=== PATIENT | female | born 1965 | race Two or more races ===

== ENCOUNTER 2021-07-03 18:49 | Emergency (ER) | payer OTHER ==
[~2021-07-03] VITALS: Ht 154.9 cm; Wt 79.2 kg
[2021-07-03] MEDS ORDERED: KETOROLAC TROMETH 30 MG/ML 1ML VIAL IM ONE (21:30)
[2021-07-04 02:15] VITALS: BP 128/65
== END 2021-07-04 02:32 | disposition home or self-care (01) ==
LOC: ER 18:58
DX: S69.91XA Unspecified injury of right wrist, hand and finger(s), initial encounter (principal); E03.9 Hypothyroidism, unspecified; E78.5 Hyperlipidemia, unspecified; X50.1XXA Overexertion from prolonged static or awkward postures, initial encounter; Y93.89 Activity, other specified; Y92.89 Other specified places as the place of occurrence of the external cause; Y99.8 Other external cause status
CPT/HCPCS: 73130; 96372; 99283; J1885

== ENCOUNTER 2022-07-04 12:58 | Emergency (ER) | payer OTHER ==
[~2022-07-04] VITALS: Ht 160 cm; Wt 77.3 kg
[2022-07-04 13:11] VITALS: BP 117/71
[2022-07-04] MEDS ORDERED: NAPR-746 PO (16:27)
== END 2022-07-04 16:36 | disposition home or self-care (01) ==
LOC: ER 12:58
DX: S40.022A Contusion of left upper arm, initial encounter (principal); X58.XXXA Exposure to other specified factors, initial encounter; Y93.89 Activity, other specified; Y92.89 Other specified places as the place of occurrence of the external cause; Y99.8 Other external cause status
CPT/HCPCS: 93971

== ENCOUNTER 2024-01-15 18:51 | Inpatient (IN) | payer OTHER, SELFPAY ==
[~2024-01-15] VITALS: Ht 165.1 cm; Wt 79.8 kg
[~2024-01-15 18:51] MED LIST: NAPR-746 PO
[2024-01-15 19:03] VITALS: PULSE 71; RESP 13; O2SAT 96
--- NOTE | 2024-01-15 19:09 | ED.PDOC ---
History of Present Illness HPI Comments 58 y/o F, with a Hx of 4x CVA, facial paralysis, HLD, DM and thyroid disease, presents with relative for c/o right-facial contortion, today. Per relative, patient had sudden onset of symptoms following an anxiety attack, while being seen at [facility], earlier, today, after seeking her PCP for "right barnes bruising." Patient denies any vision or speech changes, facial droop, or other associated symptoms or modifiers at this time. 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 Family History Family History: Reviewed,noncontributory to illness Social History Smoker: Non-Smoker Alcohol: Denies ETOH Use Drugs: Denies Drug Use Lives In: Home Constitutional: denies: chills, diaphoresis, fatigue, fever, malaise, sweats, weakness, others EENTM: reports: others (facial contortions, right side ); denies: blurred vision, double vision, ear bleeding, ear discharge, ear drainage, ear pain, ear ringing, eye pain, eye redness, hearing loss, mouth pain, mouth swelling, nasal discharge, nose bleeding, nose congestion, nose pain, photophobia, tearing, throat pain, throat swelling, voice changes Respiratory: denies: cough, hemoptysis, orthopnea, SOB at rest, shortness of breath, SOB with excertion, stridor, wheezing, others Cardiovascular: denies: chest pain, dizzy spells, diaphoresis, Dyspnea on exertion, edema, irregular heart beat, left arm pain, lightheadedness, palpitations, PND, syncope, others Gastrointestinal: denies: abdomen distended, abdominal pain, blood streaked bowels, constipated, diarrhea, dysphagia, difficulty swallowing, hematemesis, melena, nausea, poor appetite, poor fluid intake, rectal bleeding, rectal pain, vomiting, others Genitourinary: denies: abnormal vagina bleeding, burning, dyspareunia, dysuria, flank pain, frequency, hematuria, incontinence, pain, , vagina discharge, urgency, others Neurological: denies: dizziness, fainting, headache, left sided numbness, left sided weakness, numbness, paresthesia, pre-existing deficit, right sided numbnes s, right sided weakness, seizure, speech problems, tingling, tremors, weakness, others Musculoskeletal: denies: back pain, gout, joint pain, joint swelling, muscle pain, muscle stiffness, neck pain, others Integumetry: denies: bruises, change in color, change in hair/nails, dryness, laceration, lesions, lumps, rash, wounds, others Allergic/Immunocompromised: denies: Difficulty Healing, Frequent Infections, Hives, Itching, others Hematologic/Lymphatic: denies: anemia, blood clots, easy bleeding, easy bruising, swollen glands, others Endocrine: denies: excessive hunger, excessive sweating, excessive thirst, excessive urination, flushing, intolerance to cold, intolerance to heat, unexplained weight gain, unexplained weight loss, others Psychiatric: denies: anxiety, bipolar disorder, depression, hopeless, panic disorder, schizophrenia, sleepless, suicidal, others All Other Systems: Reviewed and Negative Physical Exam General Appearance: No Apparent Distress, Other (overweight ) HEENT: Normal ENT Inspection, Pharynx Normal, TMs Normal, Other (right facial contortions, no facial droop noted ) Neck: Full Range of Motion, Non-Tender, Normal, Normal Inspection Respiratory: Chest Non-Tender, Lungs Clear, No Accessory Muscle Use, No Respiratory Distress, Normal Breath Sounds Cardiovascular: No Edema, No JVD, No Murmur, No Gallop, Normal Peripheral Pulses, Regular Rate/Rhythm Breast Exam: Deferred Gastrointestinal: No Organomegaly, Non Tender, No Pulsatile Mass, Normal Bowel Sounds, Soft Genitalia: Deferred Pelvic: Deferred Rectal: Deferred Extremities: No calf tenderness, Normal capillary refill, Normal inspection, Normal range of motion, Non-tender, No pedal edema Musculoskeletal : Apperance: Normal Neurologic: Alert, housecleaner II-XII nml as Tested, No Motor Deficits, Normal Affect, Normal Mood, No Sensory Deficits Cerebellar Function: Normal Reflexes: Normal Skin: Dry, Normal Color, Warm Lymphatic: No Adenopathy Was a procedure done? Was a procedure done?: No Differential Dx Considerations may include: CVA, TIA, facial paralysis, electrolyte imbalance X-Ray, Labs, Meds, VS Vital Signs Date Time Temp Pulse Resp B/P (MAP) Pulse Ox O2 Delivery O2 Flow Rate FiO2 01/15/24 22:00 70 14 134/73 (93) 99 01/15/24 21:00 65 16 139/82 (101) 99 01/15/24 20:00 71 13 129/88 (102) 96 01/15/24 20:00 64 01/15/24 19:35 16 95 Room Air* 0 21 01/15/24 19:33 71 13 129/88 (102) 96 01/15/24 19:06 98.0 70 18 137/71 (93) 97 01/15/24 19:03 71 13 96 Room Air* 0 21 01/15/24 19:00 81 Lab Test 01/15/24 20:40 01/15/24 20:11 01/15/24 19:40 Range/Units Sodium Level 139 136-145 mmol/L Potassium Level 3.5 3.5-5.1 mmol/L Chloride Level 105 98-107 mmol/L Carbon Dioxide Level 26 20-31 mmol/L Anion Gap 8 5-15 Blood Urea Nitrogen 15 9-23 mg/dL Creatinine 0.67 0.550-1.02 mg/dL Glomerular Filtration Rate Calc 102 >90 mL/min BUN/Creatinine Ratio 22.4 H 10.0-20.0 Serum Glucose 109 H 74-106 mg/dL Calcium Level 10.4 8.7-10.4 mg/dL Troponin I High Sensitivity < 3 L < 3 L </=34 ng/L Urine Color Colorless Yellow Urine Clarity Clear Clear Urine pH 6.5 5.0-9.0 Urine Specific [place] 1.019 1.001-1.035 Urine Protein Negative Negative Urine Ketones Negative Negative Urine Blood Negative Negative /uL Urine Nitrite Negative Negative Urine Bilirubin Negative Negative Urine Urobilinogen Normal Negative mg/dL Urine Leukocyte Esterase Negative Negative /uL Urine RBC 1 0 - 4 /hpf Urine WBC <1 0 - 5 /hpf Urine Squamous Epithelial Cells Few <5 /hpf Urine Bacteria None seen None Seen /hpf Urine Glucose Normal Normal mg/dL White Blood Count 7.1 4.4-10.8 10^3/uL Red Blood Count 4.27 4.0-5.20 10^6/uL Hemoglobin 14.0 12.2-16.2 g/dL Hematocrit 39.9 36.0-46.0 % Mean Corpuscular Volume 93.5 80.0-100.0 fL Mean Corpuscular Hemoglobin 32.8 H 28.0-32.0 pg Mean Corpuscular Hemoglobin Concent 35.1 32.0-36.0 g/dL Red Cell Distribution Width 13.6 11.8-14.3 % Platelet Count 325 140-450 10^3/uL Mean Platelet Volume 9.2 6.9-10.8 fL Neutrophils (%) (Auto) 44.0 37.0-80.0 % Lymphocytes (%) (Auto) 42.4 10.0-50.0 % Monocytes (%) (Auto) 7.3 0.0-12.0 % Eosinophils (%) (Auto) 5.5 0.0-7.0 % Basophils (%) (Auto) 0.8 0.0-2.0 % Neutrophils # (Auto) 3.1 1.6-8.6 10 ^3/uL Lymphocytes # (Auto) 3.0 0.4-5.4 10 ^3/uL Monocytes # (Auto) 0.5 0-1.3 10 ^3/uL Eosinophils # (Auto) 0.4 0-0.8 10 ^3/uL Basophils # (Auto) 0.1 0-0.2 10 ^3/uL Nucleated Red Blood Cells 0.2 % Time of 1ST Reevaluation: 19:30 Reevaluation 1ST: Unchanged Patient Education/Counseling: Diagnosis, Treatment Family Education/Counseling: Diagnosis, Treatment Critical Care Note Critical Care Time?: No Stability Stability form required: No Heart Score Heart Score: Heart Score Response (Comments) Value History N/A 0 EKG N/A 0 Age N/A 0 Risk Factors N/A 0 Troponin N/A 0 Total 0 I personally scribed for MUNA TAMAYO MD ([email or web address]) on 01/15/24 at 19:09. Electronically submitted by Abisai Hamilton ([email or web address]). I personally scribed for MUNA TAMAYO MD ([email or web address]) on 01/15/24 at 22:42. Electronically submitted by Abisai Hamilton ([email or web address]). MUNA TAMAYO MD Jan 15, 2024 19:09
[2024-01-15 19:35] VITALS: RESP 16; O2SAT 95
[2024-01-15] MEDS: IOHEXOL 350 MG/ML 100ML IJ ONE (19:55)
[2024-01-15 20:13] LABS: Urine Bacteria None Seen /hpf (None Seen)
--- NOTE | 2024-01-15 20:18 | DVH ---
INDICATION: r/o cva COMPARISON: None TECHNIQUE: CTA head without and with intravenous contrast. CTA neck with intravenous contrast. 3D image postprocessing was performed on a dedicated workstation and images were used for interpretation and reporting. Radiation Dose Information: CT Dose: CTDI volume is 33.61 mGy. Dose-length product is 1456.28 mGy*cm FINDINGS: CT head: There is no evidence of acute intracranial hemorrhage, extra-axial collection, mass effect, midline s hift, herniation or hydrocephalus. The ventricles, sulci and cisterns are age appropriate. The lozano -white differentiation is intact. The visualized paranasal sinuses and mastoid air cells are clear. The surrounding soft tissues and osseous structures are unremarkable. CTA head: There is normal enhancement of the visualized distal internal carotid, anterior and middle cerebral a rteries. There is a normal anterior communicating artery complex. There are bilateral posterior com municating arteries. The vertebral, basilar, cerebellar and posterior cerebral arteries are within n ormal limits. The early parenchymal enhancement is grossly unremarkable. The visualized intracrania l venous structures are grossly unremarkable. CTA neck: The visualized thoracic aortic arch and proximal great vessels are unremarkable. The left common, internal and external carotid arteries are within normal limits. The right common, internal and external carotid arteries are within normal limits. The cervical segments of the right and left vertebral arteries are within normal limits. The limited visualized lung apices are clear. The surrounding soft tissues and osseous structures ar e otherwise unremarkable. IMPRESSION: 1. No evidence of acute intracranial hemorrhage, mass effect or hydrocephalus. 2. No evidence of hemodynamically significant intracranial stenosis, proximal occlusion or aneurysm. 3. No evidence of hemodynamically significant cervical stenosis or dissection. All CT scans at this medical facility are performed using dose modulation techniques as appropriate t o a performed exam including the following: Automated exposure control was utilized; adjustment of th e MA and/or KV according to patient size; and use of iterative reconstruction technique.
[2024-01-15 20:23] LABS: Basophils # (auto) 0.1 10 ^3/uL (0-0.2); Basophils % (auto) 0.8 % (0.0-2.0); Eosinophils # (auto) 0.4 10 ^3/uL (0-0.8); Eosinophils % (auto) 5.5 % (0.0-7.0); Hematocrit 39.9 % (36.0-46.0); Lymphocytes % (auto) 42.4 % (10.0-50.0); Mean Corpuscular Hemoglobin 32.8 pg (28.0-32.0); Mean Corpuscular Hgb Conc. 35.1 g/dL (32.0-36.0); Mean Corpuscular Volume 93.5 fL (80.0-100.0); Monocytes # (auto) 0.5 10 ^3/uL (0-1.3); Monocytes % (auto) 7.3 % (0.0-12.0); Neutrophils # (auto) 3.1 10 ^3/uL (1.6-8.6); Nucleated Red Blood Cells % 0.2 %; Platelet Count (auto) 325 10^3/uL (140-450); Red Blood Cells 4.27 10^6/uL (4.0-5.20); Red Cell Distribution Width 13.6 % (11.8-14.3); White Blood Cell 7.1 10^3/uL (4.4-10.8)
[2024-01-15 20:24] LABS: Urine Blood Negative /uL (Negative); Urine Clarity Clear (Clear); Urine Color Colorless (Yellow); Urine Protein, UAD Negative (Negative); Urine Specific Gravity 1.019 (1.001-1.035); Urine Urobilinogen Normal (Negative); Urine WBC <1 /hpf (0 - 5); Urine pH 6.5 (5.0-9.0)
--- NOTE | 2024-01-15 20:58 | DVH ---
EXAM: XY CHEST PORTABLE TECHNIQUE: Single frontal chest radiograph CLINICAL HISTORY: stroke symptoms COMPARISON: None Findings/Impression: Frontal chest radiograph demonstrates no acute osseous or superficial soft tissue abnormalities. The trachea is midline. The cardiac silhouette and mediastinum are within normal limits. No pneumothorax, pleural effusions, or consolidations.
[2024-01-15 21:13] LABS: Chloride 105 mmol/L (98-107); Potassium 3.5 mmol/L (3.5-5.1); Sodium 139 mmol/L (136-145)
[2024-01-15 21:14] LABS: Anion Gap 8 (5-15); Carbon Dioxide 26 mmol/L (20-31)
[2024-01-15 21:20] LABS: BUN/Creatinine Ratio 22.4 (10.0-20.0); Blood Urea Nitrogen 15 mg/dL (9-23)
[2024-01-15 21:31] LABS: Calcium 10.4 mg/dL (8.7-10.4); Glucose 109 mg/dL (74-106)
--- NOTE | 2024-01-15 22:21 | BSKYNEURO ---
Interior Neuro Note # Demographics Consult Type: Acute Stroke Level 1 (0-4.5 hrs) Patient Location: Emergency Room First Name: LONDON Last Name: EFRA Date of : 1965 Age: 58 Gender: Female Facility: [facility] Time of Initial Page (): 01/15/2024, 19:05 Time of Return Call (): 01/15/2024, 19:05 # HPI History: [id number]- [id number] Patient is coming to the ER for bruise on her barnes. She went to another ER and got anxious and was having generalized numbness and right sided facial asymmetry. H/O previous stroke- with similar symptoms. ASA 81 mg daily # Scores Time of exam and NIHSS (): 01/15/2024, 19:41 Level of Consciousness 1a: [1] = Not alert; but arousable by minor stim LOC Questions 1b: [2] = Answers neither correctly LOC Commands 1c: [2] = Performs neither correctly Best Gaze 2: [0] = Normal Visual 3: [0] = No visual loss Facial Palsy 4: [2] = Partial paralysis Motor Arm Left 5a: [4] = No movement Motor Arm Right 5b: [4] = No movement Motor Leg Left 6a: [4] = No movement Motor Leg Right 6b: [4] = No movement Limb Ataxia 7: [0] = Absent Sensory 8: [1] = [id number] sensory loss Best Language 9: [3] = Mute Dysarthria 10: [2] = Severe dysarthria Extinction and Inattention 11: [0] = No abnormality NIHSS Total: 29 # Assessment Impression: - Ischemic Stroke (Acute) - Stroke Mimic NIHSS is 4; likely recrudescence of previous stroke symptoms. Need evaluation for metabolic/infectious etiologies. If no other obvious cause for his symptoms, may need brain MRI wo contrast # Plan Thrombolytic/Intervention: NOT IV Thrombolysis or IA Intervention candidate Thrombolytic Exclusion (< 3 hour window): - other (see below) Thrombolytic Exclusion: recrudescence of previous stroke Intraarterial Exclusion: - no large vessel occlusion (LVO) Target Blood Pressure: - SBP < 180 - SBP > 140 Labs: - hemoglobin A1c - lipid panel - comprehensive metabolic panel - CBC - ua - urine drug screen - ESR - Ammonia - TSH - troponin Imaging: (urgency: routine): - MRI Brain without contrast Diagnostic Test: - echo without bubble study Therapy/Evaluation: - NPO until swallow evaluation - PT/OT evaluation Medication: - aspirin 81 mg PLUS clopidogrel (Plavix) 75 mg for 21 days, then monotherapy therafter - start statin with goal of LDL < 70 Other: - If patient has any neurological deterioration please call me back immediately - permissive hypertension - LDL < 70 - telemetry monitoring - will need event monitor or loop recorder as outpatient if atrial fibrillation not found as inpatient - neurology referral as outpatient - I have discussed my recommendations with the referring provider - would not pursue stroke work-up if MRI is negative Disposition: admit # Logistics Attestation of consult completion: The patient is located at: [facility]. Facility staff participated in the visit. I performed this telemedicine visit from my offsite office utilizing interactive 2 way audio and visual telecommunication technology. Total time spent in telemedicine encounter: I spent 15 minutes reviewing clinical data and/or imaging, obtaining history, examining the patient, communicating with the onsite care team, and in preparation of this report. # Demographics First Name: LONDON Last Name: EFRA Facility: [facility] Yes ALAINA KNOWLES MD Jan 15, 2024 22:21
--- NOTE | 2024-01-15 22:46 | ED.PDOC ---
History of Present Illness HPI Comments 58 y/o F, with a Hx of 4x CVA, facial paralysis, HLD, DM and thyroid disease, presents with relative for c/o right-facial contortion, today. Per relative, patient had sudden onset of symptoms following an anxiety attack, while being seen at [facility], earlier, today, after seeking her PCP for "right barnes bruising." Patient denies any vision or speech changes, facial droop, or other associated Chief Complaint: Stroke Time Seen by MD: 19:00 Primary Care Provider: JELLY Reviewed Notes: Nurses Notes, Medications, Allergies Allergies: Coded Allergies: NO KNOWN ALLERGIES (Unverified , 07/03/21) Home Meds Active Scripts Naproxen (Naproxen) 500 Mg Tab, 500 MG PO BID, #30 TAB Prov:ART DOE 07/04/22 Information Source: Patient, Relative Mode of Arrival: Ambulatory Severity: Moderate Timing: Hours Duration: Since onset Prehospital treatment: None Past Medical History PAST MEDICAL HISTORY: CVA (4x), DM, High Lipids, Thyroid Past Medical History (Other): facial paralysis Surgical History: Denies all surgeries HEARING SCREENER History: Denies all HEARING SCREENER Hx Family History Family History: Reviewed,noncontributory to illness Social History Smoker: Non-Smoker Alcohol: Denies ETOH Use Drugs: Denies Drug Use Lives In: Home Constitutional: denies: chills, diaphoresis, fatigue, fever, malaise, sweats, weakness, others EENTM: reports: others (ight facial contortions); denies: blurred vision, double vision, ear bleeding, ear discharge, ear drainage, ear pain, ear ringing, eye pain, eye redness, hearing loss, mouth pain, mouth swelling, nasal discharge, nose bleeding, nose congestion, nose pain, photophobia, tearing, throat pain, throat swelling, voice changes Respiratory: denies: cough, hemoptysis, orthopnea, SOB at rest, shortness of br eath, SOB with excertion, stridor, wheezing, others Cardiovascular: denies: chest pain, dizzy spells, diaphoresis, Dyspnea on exertion, edema, irregular heart beat, left arm pain, lightheadedness, palpitations, PND, syncope, others Gastrointestinal: denies: abdomen distended, abdominal pain, blood streaked bowels, constipated, diarrhea, dysphagia, difficulty swallowing, hematemesis, melena, nausea, poor appetite, poor fluid intake, rectal bleeding, rectal pain, vomiting, others Genitourinary: denies: abnormal vagina bleeding, burning, dyspareunia, dysuria, flank pain, frequency, hematuria, incontinence, pain, , vagina discharge, urgency, others Neurological: denies: dizziness, fainting, headache, left sided numbness, left sided weakness, numbness, paresthesia, pre-existing deficit, right sided numbness, right sided weakness, seizure, speech problems, tingling, tremors, weakness, others Musculoskeletal: denies: back pain, gout, joint pain, joint swelling, muscle pain, muscle stiffness, neck pain, others Integumetry: denies: bruises, change in color, change in hair/nails, dryness, laceration, lesions, lumps, rash, wounds, others Allergic/Immunocompromised: denies: Difficulty Healing, Frequent Infections, Hives, Itching, others Hematologic/Lymphatic: denies: anemia, blood clots, easy bleeding, easy bruising, swollen glands, others Endocrine: denies: excessive hunger, excessive sweating, excessive thirst, excessive urination, flushing, intolerance to cold, intolerance to heat, unexplained weight gain, unexplained weight loss, others Psychiatric: denies: anxiety, bipolar disorder, depression, hopeless, panic disorder, schizophrenia, sleepless, suicidal, others All Other Systems: Reviewed and Negative Physical Exam General Appearance: No Apparent Distress, Normal HEENT: Pharynx Normal, TMs Normal, Other (right facial contortions, no facial droop noted) Neck: Full Range of Motion, Non-Tender, Normal, Normal Inspection Respiratory: Chest Non-Tender, Lungs Clear, No Accessory Muscle Use, No Respiratory Distress, Normal Breath Sounds Cardiovascular: No Edema, No JVD, No Murmur, No Gallop, Normal Peripheral Pulses, Regular Rate/Rhythm Breast Exam: Deferred Gastrointestinal: No Organomegaly, Non Tender, No Pulsatile Mass, Normal Bowel Sounds, Soft Genitalia: Deferred Pelvic: Deferred Rectal: Deferred Extremities: No calf tenderness, Normal capillary refill, Normal inspection, Normal range of motion, Non-tender, No pedal edema Musculoskeletal : Apperance: Normal Neurologic: Alert, employment agency manager II-XII nml as Tested, No Motor Deficits, Normal Affect, Normal Mood, No Sensory Deficits Cerebellar Function: Normal Reflexes: Normal Skin: Dry, Normal Color, Warm Lymphatic: No Adenopathy Was a procedure done? Was a procedure done?: No Differential Dx Considerations may include: CVA, TIA, facial paralysis, electrolyte imbalance X-Ray, Labs, Meds, VS Vital Signs Date Time Temp Pulse Resp B/P (MAP) Pulse Ox O2 Delivery O2 Flow Rate FiO2 01/15/24 22:00 70 14 134/73 (93) 99 01/15/24 21:00 65 16 139/82 (101) 99 01/15/24 20:00 71 13 129/88 (102) 96 01/15/24 20:00 64 01/15/24 19:35 16 95 Room Air* 0 21 01/15/24 19:33 71 13 129/88 (102) 96 01/15/24 19:06 98.0 70 18 137/71 (93) 97 01/15/24 19:03 71 13 96 Room Air* 0 21 01/15/24 19:00 81 Lab Test 01/15/24 20:40 01/15/24 20:11 01/15/24 19:40 Range/Units Sodium Level 139 136-145 mmol/L Potassium Level 3.5 3.5-5.1 mmol/L Chloride Level 105 98-107 mmol/L Carbon Dioxide Level 26 20-31 mmol/L Anion Gap 8 5-15 Blood Urea Nitrogen 15 9-23 mg/dL Creatinine 0.67 0.550-1.02 mg/dL Glomerular Filtration Rate Calc 102 >90 mL/min BUN/Creatinine Ratio 22.4 H 10.0-20.0 Serum Glucose 109 H 74-106 mg/dL Calcium Level 10.4 8.7-10.4 mg/dL Troponin I High Sensitivity < 3 L < 3 L </=34 ng/L Urine Color Colorless Yellow Urine Clarity Clear Clear Urine pH 6.5 5.0-9.0 Urine Specific [place] 1.019 1.001-1.035 Urine Protein Negative Negative Urine Ketones Negative Negative Urine Blood Negative Negative /uL Urine Nitrite Negative Negative Urine Bilirubin Negative Negative Urine Urobilinogen Normal Negative mg/dL Urine Leukocyte Esterase Negative Negative /uL Urine RBC 1 0 - 4 /hpf Urine WBC <1 0 - 5 /hpf Urine Squamous Epithelial Cells Few <5 /hpf Urine Bacteria None seen None Seen /hpf Urine Glucose Normal Normal mg/dL White Blood Count 7.1 4.4-10.8 10^3/uL Red Blood Count 4.27 4.0-5.20 10^6/uL Hemoglobin 14.0 12.2-16.2 g/dL Hematocrit 39.9 36.0-46.0 % Mean Corpuscular Volume 93.5 80.0-100.0 fL Mean Corpuscular Hemoglobin 32.8 H 28.0-32.0 pg Mean Corpuscular Hemoglobin Concent 35.1 32.0-36.0 g/dL Red Cell Distribution Width 13.6 11.8-14.3 % Platelet Count 325 140-450 10^3/uL Mean Platelet Volume 9.2 6.9-10.8 fL Neutrophils (%) (Auto) 44.0 37.0-80.0 % Lymphocytes (%) (Auto) 42.4 10.0-50.0 % Monocytes (%) (Auto) 7.3 0.0-12.0 % Eosinophils (%) (Auto) 5.5 0.0-7.0 % Basophils (%) (Auto) 0.8 0.0-2.0 % Neutrophils # (Auto) 3.1 1.6-8.6 10 ^3/uL Lymphocytes # (Auto) 3.0 0.4-5.4 10 ^3/uL Monocytes # (Auto) 0.5 0-1.3 10 ^3/uL Eosinophils # (Auto) 0.4 0-0.8 10 ^3/uL Basophils # (Auto) 0.1 0-0.2 10 ^3/uL Nucleated Red Blood Cells 0.2 % [place] [id number] Ph: [phone] DIAGNOSTIC IMAGING Diagnostic Imaging Report : [id number] Signed PATIENT: ADITYA RKAUS ACCT: [id number] UNIT: [id number] : 1965 LOC: ER ROOM / BED: / AGE / SEX: 58 / F ADM STATUS: REG ER SERVICE [id number] ORDERING PHYSICIAN: DINORA QUESADA MD PROCEDURE(s): CXRP - CHEST PORTABLE REASON: stroke symptoms ORDER NUMBER(s): [id number], ACCESSION NUMBER(s): [id number] EXAM: XY CHEST PORTABLE TECHNIQUE: Single frontal chest radiograph CLINICAL HISTORY: stroke symptoms COMPARISON: None Findings/Impression: Frontal chest radiograph demonstrates no acute osseous or superficial soft tissue abnormalities. The trachea is midline. The cardiac silhouette and mediastinum are within normal limits. No pneumothorax, pleural effusions, or consolidations. ATED BY: SAKINA MAYS DO DICTATED DATE/TIME: 01/15/242054 SIGNED BY: SAKINA MAYS DO SIGNED DATE/TIME: 01/15/242054 CC: [place] [id number] Ph: [phone] DIAGNOSTIC IMAGING Diagnostic Imaging Report : [id number] Signed PATIENT: ADITYA KRAUS ACCT: [id number] UNIT: [id number] : 1965 LOC: ER ROOM / BED: / AGE / SEX: 58 / F ADM STATUS: REG ER SERVICE 57 ORDERING PHYSICIAN: DINORA QUESADA MD PROCEDURE(s): CTH - STROKE CTH REASON: r/o cva ORDER NUMBER(s): [id number], ACCESSION NUMBER(s): [id number] INDICATION: r/o cva COMPARISON: None TECHNIQUE: CTA head without and with intravenous contrast. CTA neck with intravenous contrast. 3D image postprocessing was performed on a dedicated workstation and images were used for interpretation and reporting. Radiation Dose Information: CT Dose: CTDI volume is 33.61 mGy. Dose-length product is 1456.28 mGy*cm FINDINGS: CT head: There is no evidence of acute intracranial hemorrhage, extra-axial collection, mass effect, midline shift, herniation or hydrocephalus. The ventricles, sulci and cisterns are age appropriate. The lozano-white differentiation is intact. The visualized paranasal sinuses and mastoid air cells are clear. The surrounding soft tissues and osseous structures are unremarkable. CTA head: There is normal enhancement of the visualized distal internal carotid, anterior and middle cerebral arteries. There is a normal anterior communicating artery complex. There are bilateral posterior communicating arteries. The vertebral, basilar, cerebellar and posterior cerebral arteries are within normal limits. The early parenchymal enhancement is grossly unremarkable. The visualized intracranial venous structures are grossly unremarkable. CTA neck: The visualized thoracic aortic arch and proximal great vessels are unremarkable. The left common, internal and external carotid arteries are within normal limits. The right common, internal and external carotid arteries are within normal limits. The cervical segments of the right and left vertebral arteries are within normal limits. The limited visualized lung apices are clear. The surrounding soft tissues and osseous structures are otherwise unremarkable. IMPRESSION: 1. No evidence of acute intracranial hemorrhage, mass effect or hydrocephalus. 2. No evidence of hemodynamically significant intracranial stenosis, proximal occlusion or aneurysm. 3. No evidence of hemodynamically significant cervical stenosis or dissection. All CT scans at this medical facility are performed using dose modulation techniques as appropriate to a performed exam including the following: Automated exposure control was utilized; adjustment of the MA and/or KV according to patient size; and use of iterative reconstruction technique. ATED BY: SAFIA LEOS MD DICTATED DATE/TIME: 01/15/242014 SIGNED BY: SAFIA LEOS MD SIGNED DATE/TIME: 01/15/242014 CC: Time of 1ST Reevaluation: 19:30 Reevaluation 1ST: Unchanged Time of 2ND Reevaluation: 22:48 Reevaluation 2ND: Unchanged Consultation: Neurology Patient Education/Counseling: Diagnosis, Treatment, Prognosis, Need For Follow Up Family Education/Counseling: Diagnosis, Treatment, Prognosis, Need For Follow Up Departure 1 Departure Time of Disposition: 19:30 Impression: Primary Impression: Stroke-like symptom Disposition: ADMITTED INPATIENT Condition: Stable Critical Care Note Critical Care Time?: Yes (35 min-critical care time only) Critical care comment: due to concerns for deterioration of pt's condition, the care required my highest level of attention and readiness. i assessed the pt, ordered the appropriate tests and treatments, reassessed the response to treatments, communicated with medical personnel, consultants, and formulated a treatment plan Stability Stability form required: No Heart Score Heart Score: Heart Score Response (Comments) Value History N/A 0 EKG N/A 0 Age N/A 0 Risk Factors N/A 0 Troponin N/A 0 Total 0 I personally scribed for DINORA QUESADA MD ([email or web address]) on 01/15/24 at 22:46. Electronically submitted by Abisai Hamilton ([email or web address]). DINORA QUESADA MD Jan 15, 2024 22:46
[2024-01-15] MEDS: CLOPIDOGREL BISULFATE 75 MG TAB PO ONE (23:03)
[2024-01-15] MEDS: ASPirin 81 mg TAB PO ONE (23:04)
[2024-01-15] MEDS: ACETAMINOPHEN 325 MG TAB PO ONE (23:06)
[2024-01-15] MEDS ORDERED: MORPHINE SULFATE INJ 2 MG/ml SYRG IV PRN (23:30)
[2024-01-15] MEDS ORDERED: NITROGLYCERIN 0.4 MG SL TAB SL PRN (23:30)
[2024-01-15] MEDS ORDERED: ONDANSETRON HCL 4 MG/2 ML VIAL IV PRN (23:30)
[2024-01-15] MEDS: SODIUM CHLORIDE 0.9% 1,000 ML IV SCH (23:52)
[2024-01-16] VITALS (8 sets, daily range): BP systolic 109–124; BP diastolic 51–61; PULSE 64–79; RESP 16–20; TEMP 97.7–98.1; O2SAT 98–99
--- NOTE | 2024-01-16 00:13 | DVH ---
Carotid Duplex Clinical History: acute stroke Comparison: None Technique: Duplex Doppler evaluation of the extracranial carotid and vertebral arteries including color Doppler and spectral/pulsed waveform analysis was performed. Findings: RIGHT SIDE: The peak systolic velocities are 91.9 cm/s in the CCA, 62.2 cm/s in the ICA. The ICA/CCA ratio is 0. 9. The external carotid artery is patent with peak systolic velocity of 118.5 cm/s proximally. There is appropriate antegrade flow in the right vertebral artery. LEFT SIDE: The peak systolic velocities are 82.3 cm/s in the CCA, 60.9 cm/s in the ICA. The ICA/CCA ratio is 1. 2. The external carotid artery is patent with peak systolic velocity of 92.1 cm/s proximally. There is appropriate antegrade flow in the left vertebral artery. IMPRESSION: 1. No hemodynamically significant stenosis noted in the right carotid system. 2. No hemodynamically significant stenosis noted in the left carotid system. Reference: Radiology 2003; 229:340-346 Normal ICA PSV is <125 cm/sec and no plaque or intimal thickening is visible sonographically additional criteria include ICA/CCA PSV ratio <2.0 and ICA EDV <40 cm/sec <50% ICA stenosis ICA PSV is <125 cm/sec and plaque or intimal thickening is visible sonographically additional criteria include ICA/CCA PSV ratio <2.0 and ICA EDV <40 cm/sec 50-69% ICA stenosis ICA PSV is 125-230 cm/sec and plaque is visible sonographically additional criteria include ICA/CCA PSV ratio of 2.0-4.0 and ICA EDV of 40-100 cm/sec 70% ICA stenosis but less than near occlusion ICA PSV is >230 cm/sec and visible plaque and luminal narrowing are seen at lozano-scale and color Dopp ler ultrasound (the higher the Doppler parameters lie above the threshold of 230 cm/sec, the greater the likelihood of severe disease) additional criteria include ICA/CCA PSV ratio >4 and ICA EDV >100 cm/sec
--- NOTE | 2024-01-16 01:18 | DVHHPRES ---
History of Present Illness Resident Creating Document: ROCIO STEWART RESIDENT Reason for Visit: acute stroke History of Present Illness 58-year-old female patient with past medical history of 4 prior stroke episodes and hypothyroidism, generalized anxiety and dyslipidemia presented with the acute onset neurological deficits associated with chest pain and headaches. The patient was referred to the hospital by her primary care doctor after being evaluated earlier in the day at 1:00 p.m. for unexplained bruising on the lower extremities. During that visit the patient began experiencing difficulty speaking and right-sided facial droop. These symptoms progressed to include paralysis of the bilateral upper and lower extremities by the time of hospital presentation. The patient has had similar episodes in the past associated with prior strokes and out of strokes , from which she reportedly recovered fully, regaining her ability to walk and talk at present the patient is unable to speak move her head or move her extremities. Communication is limited to blinking. On examination there is paralysis of the right side of the face and quadriplegia. Patient denies alcohol use, smoking or drug use. Her current medication list is unknown as the family has not provided and the primary care physician was unavailable for additional history at this time. Neurology has been consulted and the patient has been started on aspirin, clopidogrel. An MRI without contrast has been recommended to localized stroke. At this time it has been approximately 10 hours since the onset of symptoms. Past Medical History 4 Stroke like episodes Generalized anxiety Hypothyroidism Dyslipidemia Family History: None Smoke: No ALCOHOL: none Drugs: None Lives: with Family Review of Systems Review of Systems Communication was limited, the patient complaints of headache and chest pain. Allergies: Coded Allergies: NO KNOWN ALLERGIES (Unverified , 07/03/21) Medications Current Medications Medications Dose Ordered Sig/Yusef Route Start Time Stop Time Status Last Admin Dose Admin Sodium Chloride 1,000 ml @ 60 mls/hr [id number] IV 01/15/24 23:30 01/15/24 23:52 60 MLS/HR Acetaminophen/ Hydrocodone Bitart 1 tab Q4HP PRN PO 01/15/24 23:30 Ondansetron HCl 4 mg Q4HP PRN IV 01/15/24 23:30 Morphine Sulfate 2 mg Q4HPRN PRN IV 01/15/24 23:30 Nitroglycerin 0.4 mg Q5MINP PRN SL 01/15/24 23:30 Morphine Sulfate 2 mg Q30M PRN IV 01/15/24 23:30 Exam Vital Signs Vital Signs Date Time Temp Pulse Resp B/P (MAP) Pulse Ox O2 Delivery O2 Flow Rate FiO2 01/15/24 22:00 70 14 134/73 (93) 99 01/15/24 19:35 Room Air* 0 21 01/15/24 19:06 98.0 Exam Examination General Appearance: Patient is awake and conscious but unable to speak or move except for eye movement and blinking. Communication limited to blinking HEENT: EOMI Respiratory: Clear to auscultation, Normal air movement Cardiovascular: Regular rate, Normal S1, Normal S2 Abdominal: Normal bowel sounds Extremities: No cyanosis, No edema, Normal pulses, No tenderness/swelling Skin: No rashes, No breakdown Neuro: Alert and oriented, and able to respond verbally due to quadriplegia and aphasia. Cranial nerve lll: Vertical eye movement intact, leaking is used for communication for yes and no Cranial nerve lV: Horizontal eye movements unimpaired Cranial nerve IX and X: Intact Cranial nerve XII: Tongue paralysis Motor: Quadriplegia: Complete paralysis of all four extremities Reflexes: Diminished/absent Babinski: Negative Labs/Xrays Labs Test 01/15/24 20:40 01/15/24 20:11 01/15/24 19:40 Range/Units Sodium Level 139 136-145 mmol/L Potassium Level 3.5 3.5-5.1 mmol/L Chloride Level 105 98-107 mmol/L Carbon Dioxide Level 26 20-31 mmol/L Anion Gap 8 5-15 Blood Urea Nitrogen 15 9-23 mg/dL Creatinine 0.67 0.550-1.02 mg/dL Glomerular Filtration Rate Calc 102 >90 mL/min BUN/Creatinine Ratio 22.4 H 10.0-20.0 Serum Glucose 109 H 74-106 mg/dL Calcium Level 10.4 8.7-10.4 mg/dL Troponin I High Sensitivity < 3 L </=34 ng/L Urine Color Colorless Yellow Urine Clarity Clear Clear Urine pH 6.5 5.0-9.0 Urine Specific [place] 1.019 1.001-1.035 Urine Protein Negative Negative Urine Ketones Negative Negative Urine Blood Negative Negative /uL Urine Nitrite Negative Negative Urine Bilirubin Negative Negative Urine Urobilinogen Normal Negative mg/dL Urine Leukocyte Esterase Negative Negative /uL Urine RBC 1 0 - 4 /hpf Urine WBC <1 0 - 5 /hpf Urine Squamous Epithelial Cells Few <5 /hpf Urine Bacteria None seen None Seen /hpf Urine Glucose Normal Normal mg/dL White Blood Count 7.1 4.4-10.8 10^3/uL Red Blood Count 4.27 4.0-5.20 10^6/uL Hemoglobin 14.0 12.2-16.2 g/dL Hematocrit 39.9 36.0-46.0 % Mean Corpuscular Volume 93.5 80.0-100.0 fL Mean Corpuscular Hemoglobin 32.8 H 28.0-32.0 pg Mean Corpuscular Hemoglobin Concent 35.1 32.0-36.0 g/dL Red Cell Distribution Width 13.6 11.8-14.3 % Platelet Count 325 140-450 10^3/uL Mean Platelet Volume 9.2 6.9-10.8 fL Neutrophils (%) (Auto) 44.0 37.0-80.0 % Lymphocytes (%) (Auto) 42.4 10.0-50.0 % Monocytes (%) (Auto) 7.3 0.0-12.0 % Eosinophils (%) (Auto) 5.5 0.0-7.0 % Basophils (%) (Auto) 0.8 0.0-2.0 % Neutrophils # (Auto) 3.1 1.6-8.6 10 ^3/uL Lymphocytes # (Auto) 3.0 0.4-5.4 10 ^3/uL Monocytes # (Auto) 0.5 0-1.3 10 ^3/uL Eosinophils # (Auto) 0.4 0-0.8 10 ^3/uL Basophils # (Auto) 0.1 0-0.2 10 ^3/uL Nucleated Red Blood Cells 0.2 % Assessment/Plan Assessment/Plan #Acute ischemic stroke rule out stroke like episode ? Locked in syndrome ?Conversion disorder wishes -quadriplegia and right facial paralysis suggest brainstem stroke, in the absence of Babinski sign normal sodium levels are normal head CT this can raise concern about alternative for coexisting diagnosis. -MRI head without contrast -neurology consultation -carotid Doppler, head CT were negative -coagulation studies -thyroid function tests -continue dual antiplatelet therapy unless imaging rules out ischemic stroke -keep permissive hypertension -aspirin 81 mg p.o. -swallow evaluation -atorvastatin 40 mg p.o. -clopidogrel 75 mg p.o. #History of for acute strokes/stroke-like episodes -family reports the patient had severe anxiety and she had similar episodes in the past with similar presentation, fully recovered afterwards. #Rule out conversion disorder -same as above, as this is an exclusion diagnosis. #type 1 obesity -dietary and lifestyle modifications counseling #History of hypothyroidism - continue home meds Case discussed with Dr. Cuellar Code status: Full code Goals Of care discussed with patient and family for 46 minutes Plan discussed with: Patient, Spouse, Daughter My Orders Orders - ROCIO STEWART RESIDENT Procedure Category Date Status Time Admit ADMIT 01/15/24 Transmitted 23:20 Allergies NISSA 01/15/24 In Process 23:20 Code Status CODE 01/15/24 Transmitted 23:20 Sodium Chloride 0.9% PHA 01/15/24 In Process 23:30 Hydrocodone-Acet PHA 01/15/24 In Process 5/325mg Tab ([place] 23:30 Ondansetron Hcl PHA 01/15/24 In Process (Zofran) 23:30 Complete Blood Count LAB 01/16/24 Logged 04:00 Comprehensive LAB 01/16/24 Logged Metabolic Panel 04:00 Npo (Nothing By DIET 01/16/24 Transmitted Mouth) Diet Breakfast * Swallow Request ST 01/15/24 Transmitted 23:20 Echo 2d Mode Cardiac US 01/15/24 Logged DOP 23:20 Carotid Duplx W Color US 01/15/24 Resulted DOP 23:20 Morphine Sulfate PHA 01/15/24 In Process Injection 23:30 Nitroglycerin PHA 01/15/24 In Process Sublingual (Ntrostat 23:30 Morphine Sulfate PHA 01/15/24 In Process Injection 23:30 Oxygen By Nasal RT 01/15/24 Transmitted Cannula 23:20 Stat Ekg For Chest NISSA 01/15/24 In Process Pain 23:20 Notify Md Of Changes NISSA 01/15/24 In Process From Base 23:20 Rn Intake For NISSA 01/15/24 In Process 24 Hours 23:20 Emergency Dysrhythmia NISSA 01/15/24 In Process Protocol 23:20 Rhythm Strips Once NISSA 01/15/24 In Process Every Shift 23:20 Brain Head Wo Contrast MRI 01/16/24 Logged 00:23 Date of Service: Jan 15, 2024 Billing Provider: EFRAIN CUELLAR MD Common Visit Codes: [id number] INP/OBS CARE (HIGH) ROCIO STEWART RESIDENT Jan 16, 2024 01:18 EFRAIN CUELLAR MD Jan 16, 2024 15:01
[2024-01-16] MEDS: MORPHINE SULFATE INJ 2 MG/ml SYRG IV PRN (04:19)
[2024-01-16] MEDS ORDERED: ATOR-47 PO (05:55)
[2024-01-16] MEDS ORDERED: LEVO50TA7 PO (05:55)
[2024-01-16] MEDS ORDERED: ASPI-628 PO (05:55)
[2024-01-16] MEDS ORDERED: LIOT5TAB31 PO (05:55)
[2024-01-16] MEDS: ATORVASTATIN 20 MG TAB PO ONE (06:45)
[2024-01-16 07:26] LABS: Basophils # (auto) 0 10 ^3/uL (0-0.2); Basophils % (auto) 0.8 % (0.0-2.0); Eosinophils # (auto) 0.4 10 ^3/uL (0-0.8); Hematocrit 41.7 % (36.0-46.0); Hemoglobin 14.8 g/dL (12.2-16.2); Lymphocytes % (auto) 39.7 % (10.0-50.0); Mean Corpuscular Hemoglobin 32.8 pg (28.0-32.0); Mean Corpuscular Hgb Conc. 35.4 g/dL (32.0-36.0); Mean Corpuscular Volume 92.6 fL (80.0-100.0); Monocytes # (auto) 0.4 10 ^3/uL (0-1.3); Monocytes % (auto) 7.2 % (0.0-12.0); Neutrophils # (auto) 2.3 10 ^3/uL (1.6-8.6); Neutrophils % (auto) 44.3 % (37.0-80.0); Nucleated Red Blood Cells % 0.1 %; Platelet Count (auto) 269 10^3/uL (140-450); Red Blood Cells 4.51 10^6/uL (4.0-5.20); Red Cell Distribution Width 13.3 % (11.8-14.3); White Blood Cell 5.1 10^3/uL (4.4-10.8)
[2024-01-16 07:54] LABS: INR 1.04 (0.9-1.15)
[2024-01-16 07:56] LABS: Alanine Aminotransferase 34 U/L (7-40); Albumin 4.4 g/dL (3.2-4.8); Alkaline Phosphatase 63 U/L (46-116); Anion Gap 8 (5-15); Aspartate Aminotransferase 22 U/L (13-40); BUN/Creatinine Ratio 17.1 (10.0-20.0); Blood Urea Nitrogen 12 mg/dL (9-23); Calcium 10.2 mg/dL (8.7-10.4); Carbon Dioxide 27 mmol/L (20-31); Chloride 105 mmol/L (98-107); Creatine Kinase IFCC 134 U/L (34-145); Potassium 3.8 mmol/L (3.5-5.1); Sodium 140 mmol/L (136-145)
[2024-01-16 07:57] LABS: Bilirubin, Total 0.9 mg/dL (0.2-1.0); Total Protein 6.9 g/dL (5.7-8.2)
[2024-01-16 08:05] LABS: Glucose 118 mg/dL (74-106)
--- NOTE | 2024-01-16 08:47 | DVHINCON2 ---
Date of service: Jan 16, [address] Love Reason for Consultation Acute stroke History of Present Illness Ms. Sierra is a 58 years old right-handed female with a history of diabetes, dyslipidemia, hypothyroidism, multiple strokes, the patient came to the hospital on 01/15/2024 with a chief company of acute stroke syndrome, chest pain and headache. at that time, the patient looks alert and oriented, but can only vocalize, not able to provide the history. The information is obtained from her daughter, I have also talked to Dr. Love and reviewed chart Apparently, when she was seen her doctor in a regular appointment on 01/15/2024, she developed right facial drooping and speech difficulty, the patient was recommended to a ER however she went home, and then later she came to the hospital. When I see her, her mouth is twisting towards the right side, she can move her eyes, blink with low problem, she can move his head from [id number] a little bit, she can vocalize, she can only moves the arms and legs a little bit According to her daughter, the patient had had similar symptoms: Unable to express herself, unable to move the arms and legs from 12 years ago to two years ago. Her daughter does not remember how the patient was treated however she claimed the patient was seen in the hospital and was said to have stroke, and the patient has had good recovery from all the strokes Tele stroke consultation, 12/16/2023: NIH assess: 29. She was not an IV thrombolysis or IA interventional candidate Urinalysis, 01/15/2024: Unremarkable CBC, 01/16/2024: Unremarkable CMP, 01/16/2024: Unremarkable TSH, 01/16/2024: 2.26 Carotid Doppler, 01/15/2024: 1. No hemodynamically significant stenosis noted in the right carotid system. 2. No hemodynamically significant stenosis noted in the left carotid system CT head, 01/15/2024: 1. No evidence of acute intracranial hemorrhage, mass effect or hydrocephalus. 2. No evidence of hemodynamically significant intracranial stenosis, proximal occlusion or aneurysm. 3. No evidence of hemodynamically significant cervical stenosis or dissection MRI headache, 01/15/2024: Unremarkable noncontrast MRI brain Past Medical History Diabetes, dyslipidemia, hypothyroidism, multiple strokes Past Surgical History Lumbar spine surgery, bilateral hand surgery, knee surgery Family History: Patient reports no known family medical history. Family History Daughter denies any major physical and mental illness Social History She has not history of tobacco smoke, no history of alcohol or recreational substance abuse Allergies: Coded Allergies: NO KNOWN ALLERGIES (Unverified , 07/03/21) Home Meds Reported Medications Liothyronine Sodium (Liothyronine Sodium) 5 Mcg Tab, 1 TAB PO DAILY 01/16/24 Levothyroxine Sodium (Levothyroxine Sodium) 50 Mcg Tab, 1 TAB PO DAILY 01/16/24 Aspirin (Aspirin Adult Low Dose) 81 Mg Tab, 1 TAB PO DAILY 01/16/24 Atorvastatin Calcium (ATORVASTATIN CALCIUM) 80 Mg Tab, 1 TAB PO DAILY 01/16/24 Current Medications Current Medications Medications (Trade) Dose Ordered Sig/Yusef Route PRN Reason Start Time Stop Time Status Last Admin Sodium Chloride 1,000 ml @ 60 mls/hr [id number] IV 01/15/24 23:30 01/15/24 23:52 Acetaminophen/ Hydrocodone Bitart ([place] 5/325MG Tab) 1 tab Q4HP PRN PO MODERATE PAIN (4-6 PAIN SCALE) 01/15/24 23:30 Ondansetron HCl (Zofran) 4 mg Q4HP PRN IV NAUSEA / VOMITING 01/15/24 23:30 Morphine Sulfate 2 mg Q4HPRN PRN IV SEVERE PAIN (7-10 PAIN SCALE) 01/15/24 23:30 01/16/24 04:19 Nitroglycerin (Ntrostat Sublingual) 0.4 mg Q5MINP PRN SL FOR CHEST PAIN 01/15/24 23:30 Morphine Sulfate 2 mg Q30M PRN IV FOR CHEST PAIN 01/15/24 23:30 Aspirin 81 mg DAILY PO 01/16/24 10:00 Atorvastatin Calcium (Lipitor) 40 mg HS PO 01/16/24 22:00 Clopidogrel Bisulfate (Plavix) 75 mg DAILY PO 01/16/24 10:00 Review of Systems Above, the other systems are negative Vital Signs Vital Signs Date Time Temp Pulse Resp B/P (MAP) Pulse Ox O2 Delivery O2 Flow Rate FiO2 01/16/24 04:49 67 16 77/39 01/16/24 04:21 97.7 99 97.7 01/16/24 03:41 Nasal Cannula* 2 28 Physical Exam GENERAL EXAM: General: the patient is well developed and nourished. No acute distress. HEENT: Normocephalic, neck is supple, no carotid bruits. No mass. RESPIRATORY: Normal respiratory effort with symmetrical lung expansion. Lungs clear to auscultation. CARDIOVASCULAR: Regular rate and rhythm with no murmurs. S1, S2. ABDOMEN: Soft, nontender, normal bowel sound NEUROLOGICAL: MENTAL STATUS: Awake and alert. I presumed she is oriented SPEECH, LANGUAGE, HIGHER CORTICAL FUNCTION: She vocalize, she understands verbal commands, but she vocalizes but can not not speak CRANIAL NERVES: #2: Intact visual soto to confrontation. #3,4,6: Pupils are equal, round and reactive. EOMs full and conjugate. Mild bilateral gaze evoked nystagmus. #5: Facial sensation intact in all three divisions bilaterally. Mandibular strength intact. #7: Mouth twisted towards the right side #8: Hearing grossly normal to voice. #9,10: Deferred #11: She can move the head [id number] a little bit #12: Tongue midline. No fasciculations or atrophy. SENSATION: Sensation to touch and pinprick is normal. No sensory level MOTOR: Normal tone in the upper and lower extremity. Normal muscle bulk. No fasciculations. No abnormal movements or posturing. Muscle strength of the major groups in the upper extremities is 2-3/5, strong in the hands. Muscle strength of the major groups in the lower extremities is 2-3/5. REFLEXES: Deep tendon reflexes are symmetrical. No pathological reflexes. CEREBELLAR/COORDINATION: Deferred GAIT/STATION: deferred. Labs/Diagnostic Data Labs Test 01/16/24 07:04 01/15/24 20:40 01/15/24 20:11 Range/Units White Blood Count 5.1 # 4.4-10.8 10^3/uL Red Blood Count 4.51 4.0-5.20 10^6/uL Hemoglobin 14.8 12.2-16.2 g/dL Hematocrit 41.7 36.0-46.0 % Mean Corpuscular Volume 92.6 80.0-100.0 fL Mean Corpuscular Hemoglobin 32.8 H 28.0-32.0 pg Mean Corpuscular Hemoglobin Concent 35.4 32.0-36.0 g/dL Red Cell Distribution Width 13.3 11.8-14.3 % Platelet Count 269 140-450 10^3/uL Mean Platelet Volume 8.6 6.9-10.8 fL Neutrophils (%) (Auto) 44.3 37.0-80.0 % Lymphocytes (%) (Auto) 39.7 10.0-50.0 % Monocytes (%) (Auto) 7.2 0.0-12.0 % Eosinophils (%) (Auto) 8.0 H 0.0-7.0 % Basophils (%) (Auto) 0.8 0.0-2.0 % Neutrophils # (Auto) 2.3 1.6-8.6 10 ^3/uL Lymphocytes # (Auto) 2.0 0.4-5.4 10 ^3/uL Monocytes # (Auto) 0.4 0-1.3 10 ^3/uL Eosinophils # (Auto) 0.4 0-0.8 10 ^3/uL Basophils # (Auto) 0 0-0.2 10 ^3/uL Nucleated Red Blood Cells 0.1 % Prothrombin Time 11.0 9.3-11.8 sec Prothrombin Time INR 1.04 0.9-1.15 Sodium Level 140 136-145 mmol/L Potassium Level 3.8 3.5-5.1 mmol/L Chloride Level 105 98-107 mmol/L Carbon Dioxide Level 27 20-31 mmol/L Anion Gap 8 5-15 Blood Urea Nitrogen 12 9-23 mg/dL Creatinine 0.70 0.550-1.02 mg/dL Glomerular Filtration Rate Calc 101 >90 mL/min BUN/Creatinine Ratio 17.1 10.0-20.0 Serum Glucose 118 H 74-106 mg/dL Calcium Level 10.2 8.7-10.4 mg/dL Total Bilirubin 0.9 0.2-1.0 mg/dL Aspartate Amino Transferase (AST) 22 13-40 U/L Alanine Aminotransferase (ALT) 34 7-40 U/L Alkaline Phosphatase 63 46-116 U/L Ammonia 31 11-32 umol/L Creatine Kinase 134 34-145 U/L Total Protein 6.9 5.7-8.2 g/dL Albumin 4.4 3.2-4.8 g/dL Thyroid Stimulating Hormone (TSH) 2.26 0.55-4.78 uIU/mL Troponin I High Sensitivity < 3 L </=34 ng/L Urine Color Colorless Yellow Urine Clarity Clear Clear Urine pH 6.5 5.0-9.0 Urine Specific [place] 1.019 1.001-1.035 Urine Protein Negative Negative Urine Ketones Negative Negative Urine Blood Negative Negative /uL Urine Nitrite Negative Negative Urine Bilirubin Negative Negative Urine Urobilinogen Normal Negative mg/dL Urine Leukocyte Esterase Negative Negative /uL Urine RBC 1 0 - 4 /hpf Urine WBC <1 0 - 5 /hpf Urine Squamous Epithelial Cells Few <5 /hpf Urine Bacteria None seen None Seen /hpf Urine Glucose Normal Normal mg/dL Assessment Recurrent speech disturbance, quadriplegia, with unremarkable MRI and CT brain scan. the patient was had good recovery from previous events Stroke, clinically a typical ? Psychogenic issue Anxiety Plan/Recommendation Monitoring Supportive treatment Telemetry Lipitor profile Tele psych consultation Aspirin 81 mg daily, Lipitor 40 mg daily (home medication) Ativan also anxiety attack More recommendation per clinical course Progress: Poor This medical document was created using an electronic medical record system with [employer] computerized dictation system. Although this document has been carefully reviewed, there may still be some phonetic and typographical errors. These areas are purely typographical due to imperfections of the software programs, and do not reflect any compromise in the patient's medical care. Plan discussed with: Patient, Spouse, Daughter, Other GABE SHAVER MD Jan 16, 2024 08:47
--- NOTE | 2024-01-16 08:58 | DVH ---
EXAMINATION: MRI BRAIN HEAD WO CONTRAST INDICATION: facial asymmetry COMPARISON: None TECHNIQUE: Multiplanar, multisequence magnetic resonance imaging of the brain was performed without the use of i ntravenous contrast. FINDINGS: There is no restricted diffusion. The lozano and white matter signal is appropriate. There is no eviden ce of hemorrhage, mass, mass effect or midline shift. There is no hydrocephalus or extra-axial fluid collection. The visualized intracranial vasculature demonstrates appropriate flow-voids. The sagittal midline structures appear unremarkable. The craniocervical junction is within normal limits. The ta varium demonstrates normal marrow signal. The paranasal sinuses and mastoid air cells are clear. IMPRESSION: 1. Unremarkable noncontrast MRI brain. HS:Y
[2024-01-16] MEDS: ASPirin 81 mg TAB PO SCH (10:00)
[2024-01-16] MEDS ORDERED: CLOPIDOGREL BISULFATE 75 MG TAB PO SCH (10:00)
[2024-01-16 10:03] LABS: LDL Cholesterol 93 mg/dL (< 100); Triglycerides 97 mg/dL (< 150)
[2024-01-16 10:04] LABS: HDL Cholesterol 51 mg/dL (40-59)
[2024-01-16 10:05] LABS: Cholesterol 163 mg/dL (< 200)
--- NOTE | 2024-01-16 12:57 | ECG ---
[facility] Test Date: 2024-01-15 Test Time: 19:00:53 Pat Name: ADITYA KRAUS Department: ER Room: 0295T A Gender: F [employer] Operator: MAHAMED : 1965 Requested By: DINORA QUESADA Order Number: [id number] Reading MD: Slim Randolph Measurements Intervals [place] Rate: 81 P: 68 [place]: 137 QRS: 68 QRSD: 79 T: 51 QT: 371 QTc: 431 Interpretive Statements Sinus rhythm Baseline wander in lead(s) I,II,aVR,aVF,V1,V2 Electronically Signed On 01-16-2024 13:07:46 PST by Slim Randolph Please click the below link to view image of tracing.
--- NOTE | 2024-01-16 13:07 | DVHSR ---
APPROVED REPORT EXAM: Two-dimensional and M-mode echocardiogram with Doppler and color Doppler. Blood Pressure: 77/39 mmHg INDICATION R/O stroke RISK FACTORS Height: 5'5", Weight: 174 DIMENSIONS LVDd4.3 (3.8-5.7cm)LA (2D)3.2 (1.9-4.0cm)Aortic Root2.8 (2.0-3.7cm) LVDs2.9 (2.5-4.0cm)LA (MM) (1.9-4.0cm)Aortic Cusp Exc1.8 (1.5-2.0cm) EF (%) 60.0 (55-70%)Rt. Atrium3.7 (1.9-4.0cm)Asc. Aorta cm IVSd0.5 (0.7-1.1cm)RV (D) (1.8-2.4cm) Mitral Valve MitralMitral Stenosis E wave0.64m/sMV Mean GR.mmHg A wave0.66m/sMV Peak GR.mmHg E/A ratio1.02D MVAcm2 DECEL [id number] 1/2 [place] Aortic Valve Aortic ValveAortic Stenosis V10.95m/Cassandra Mean GR.2mmHg V21.03m/Cassandra Peak GR.4mmHg LVOT Diameter1.8 (1.8-2.4cm)Doppler AVA2.35cm2 Pulmonic Valve V20.75m/s Other Information Quality : Technically LimitedRhythm : Technically limited study due to body habitus. Conclusion Normal left ventricular size and dimension. Normal left ventricular systolic function estimated ejec tion fraction 55%. There is a grade 1 diastolic dysfunction. Normal right ventricular size and dimension. Normal right ventricular systolic function. Normal biatrial size and dimension. Normal aortic valve structure and function. Normal mitral valve structure and function. Normal tricuspid valve structure and function. The pulmonary valve is grossly normal. No pericardial effusion.
--- NOTE | 2024-01-16 18:03 | DVHPNRES ---
Progress Note Date Seen: Jan 16, 2024 Resident Creating Document: DACIAMERLIN WHITE RESIDENT Medical Necessity Reason Pt with a Central, PICC or Fol: Yes The following are medically ne: Gaona Catheter Subjective Review of Systems Patient is a 68-year-old female with a past medical history as described below came to the ED with a chief complaint of facial droop towards the right side noticed by her daughter. Patient apparently walked to the car from home and went the came to the ED patient is slowly started becoming weak in her lower extremities followed by upper extremities. Brought to the ED by her daughter who reported that she developed bruises on her legs on Saturday and Saturday evening she was noted to have slurred speech and facial droop and the came to hospital. Patient was not able to move her legs or arms Code stroke was activated and the patient underwent a CTA head with and without IV contrast which revealed no evidence of acute intracranial hemorrhage, mass effect or hydrocephalus, no hemodynamically significant intracranial stenosis, paroxysmal occlusion or aneurysm, no evidence of hemodynamically significant cervical stenosis or dissection was seen. Patient was evaluated by Neurology who assessed the patient with likely acute ischemic stroke versus stroke mimic, NIHSS 4, likely recrudescence of previous stroke symptoms need evaluation for metabolic/infectious etiologies. Past medical history: Patient has a history of 4-5 similar episodes with stroke- like symptoms in the past as reported by daughter and with the most recent episode 7 months ago in June from which she was able to recover completely. Hypothyroidism Past surgical history: None reported Social history: Denies smoking, alcohol, drug use Home medication: aspirin 81 mg, atorvastatin, levothyroxine Review of systems Patient seen and examined at the bedside. At the time of examination in the morning around 9:30 a.m. on 01/16/2024 ,Alert and oriented x4. Patient understands and responds to verbal commands. Denied chest pain, shortness of breath, palpitations. Facial droop noticed towards the right side with left facial weakness. Speech is slurred and somewhat comprehensible. Objective vital signs Vital Sign Date Time Temp Pulse Resp B/P (MAP) Pulse Ox O2 Delivery O2 Flow Rate FiO2 01/16/24 17:00 79 17 109/58 (75) 98 01/16/24 13:00 97.8 97.8 01/16/24 03:41 Nasal Cannula* 2 28 medications Current Medications Medications Dose Ordered Sig/Yusef Route Start Time Stop Time Status Last Admin Dose Admin Sodium Chloride 1,000 ml @ 60 mls/hr [id number] IV 01/15/24 23:30 01/15/24 23:52 60 MLS/HR Acetaminophen/ Hydrocodone Bitart 1 tab Q4HP PRN PO 01/15/24 23:30 Ondansetron HCl 4 mg Q4HP PRN IV 01/15/24 23:30 Morphine Sulfate 2 mg Q4HPRN PRN IV 01/15/24 23:30 01/16/24 15:20 2 MG Nitroglycerin 0.4 mg Q5MINP PRN SL 01/15/24 23:30 Morphine Sulfate 2 mg Q30M PRN IV 01/15/24 23:30 Aspirin 81 mg DAILY PO 01/16/24 10:00 Atorvastatin Calcium 40 mg HS PO 01/16/24 22:00 Lorazepam 0.5 mg Q8HP PRN PO 01/16/24 09:45 Examination Physical Examination Gen - no pallor, no icterus, no cyanosis, no clubbing, no LAD, no edema . Skin - Patients skin is warm and dry. HEENT - normocephalic, atraumatic, moist mucous membranes. Neck - full ROM, no LAD, no JVD Pulmonary - B/L vesicular breath sounds. no crackles , no wheezing, no stridor. cardiovascular - normal S1,S2 heard. no murmurs heard. peripheral pulses normal radial 2+, pedal 2+. capillary refill normal <2 secs. GI - soft abdomen without tenderness to palpation .no hepatospleenomegaly. Bowel sounds normoactive Neurological Patient is A/O X 4 . Understands and follows verbal commands. Speech is somewhat comprehensible Motor Tone normal Bilateral lower extremity strength 3/5. Patient was able to wiggle the hands but not able to lift arms up or move them [id number] when eliminating gravity. Deep tendon reflexes , knee, ankle, triceps 2+. Plantar reflex downgoing. Cranial nerves 2- intact to visual soto 3,4,6 - extraocular movements full and conjugate, pupils are reactive. 5 - intact facial sensation 7- weakness on the left side of face with facial droop to the right side 11- can perform shoulder shrug 12-normal tongue protrusion Sensory Normal touch sensation, normal position and vibration. laboratory and microbiology Laboratory Tests 01/16/24 07:04 Test 01/16/24 07:04 Range/Units Serum Glucose 118 H 74-106 mg/dL Problem List/Assessment/Plan Problem List/Assessment/Plan Assessment and plan # Stroke-like episode ?Acute ischemic stroke ?Psychogenic ?Conversion disorder - CTA head with and without IV contrast showed 1. No evidence of acute intracranial hemorrhage, mass effect or hydrocephalus. 2. No evidence of hemodynamically significant intracranial stenosis, proximal occlusion or aneurysm. 3. No evidence of hemodynamically significant cervical stenosis or dissection. - MRI brain without contrast was unremarkable - carotid Doppler showed no hemodynamically significant stenosis in the bilateral carotid system. - neurology consulted recommended patient on telemetry - on aspirin 81 mg and atorvastatin 40 mg daily - Ativan p.r.n. for anxiety - history of similar episodes in the past with full recovery # history of hypothyroidism - continued on home meds Goals of care discussed with the patient and the family for over 39 minutes. Full code Plan discussed with Dr. Huber Plan discussed with: Patient, Spouse, Daughter Date of Service: Jan 16, 2024 Billing Provider: NATY AVALOS MD Common Visit Codes: [id number] INP/OBS CARE(HIGH) MERLIN DONAHUE RESIDENT Jan 16, 2024 18:03 NATY AVALOS MD Jan 20, 2024 00:27
[2024-01-16] MEDS: ATORVASTATIN 20 MG TAB PO SCH (21:29)
[2024-01-17] VITALS (8 sets, daily range): BP systolic 104–140; BP diastolic 51–76; PULSE 65–86; RESP 16–20; TEMP 97.4–98.3; O2SAT 96–100
[2024-01-17 07:36] LABS: Basophils # (auto) 0 10 ^3/uL (0-0.2); Basophils % (auto) 0.6 % (0.0-2.0); Eosinophils # (auto) 0.4 10 ^3/uL (0-0.8); Eosinophils % (auto) 5.4 % (0.0-7.0); Hematocrit 37.8 % (36.0-46.0); Hemoglobin 13.2 g/dL (12.2-16.2); Lymphocytes # (auto) 1.8 10 ^3/uL (0.4-5.4); Lymphocytes % (auto) 26.3 % (10.0-50.0); Mean Corpuscular Hemoglobin 32.6 pg (28.0-32.0); Monocytes # (auto) 0.4 10 ^3/uL (0-1.3); Monocytes % (auto) 5.4 % (0.0-12.0); Neutrophils # (auto) 4.2 10 ^3/uL (1.6-8.6); Neutrophils % (auto) 62.3 % (37.0-80.0); Platelet Count (auto) 245 10^3/uL (140-450); Red Blood Cells 4.07 10^6/uL (4.0-5.20); Red Cell Distribution Width 13.4 % (11.8-14.3); White Blood Cell 6.7 10^3/uL (4.4-10.8)
[2024-01-17 07:46] LABS: Anion Gap 5 (5-15); Carbon Dioxide 28 mmol/L (20-31); Chloride 106 mmol/L (98-107); Potassium 4.1 mmol/L (3.5-5.1); Sodium 139 mmol/L (136-145)
[2024-01-17 07:47] LABS: Calcium 9.2 mg/dL (8.7-10.4)
[2024-01-17 07:52] LABS: BUN/Creatinine Ratio 20.3 (10.0-20.0); Blood Urea Nitrogen 14 mg/dL (9-23); Triglycerides 100 mg/dL (< 150)
[2024-01-17 07:53] LABS: LDL Cholesterol 77 mg/dL (< 100)
[2024-01-17 07:54] LABS: Cholesterol 138 mg/dL (< 200); HDL Cholesterol 42 mg/dL (40-59)
[2024-01-17 07:55] LABS: Glucose 119 mg/dL (74-106)
[2024-01-17] MEDS: HYDROcodone-ACET 5/325MG TAB PO PRN (09:37)
--- NOTE | 2024-01-17 13:37 | DVHINCON2 ---
Date of Service if different f: Jan 17, 2024 Time of Service: 13:09 Consultation ([facility]) Consulting Physician: TORITO VILLASENOR MD Labs Laboratory Tests Test 01/15/24 20:11 01/15/24 20:40 01/16/24 07:04 01/17/24 07:13 Urine Color Colorless (Yellow) Urine Clarity Clear (Clear) Urine pH 6.5 (5.0-9.0) Urine Specific [place] 1.019 (1.001-1.035) Urine Protein Negative (Negative) Urine Ketones Negative (Negative) Urine Blood Negative /uL (Negative) Urine Nitrite Negative (Negative) Urine Bilirubin Negative (Negative) Urine Urobilinogen Normal mg/dL (Negative) Urine Leukocyte Esterase Negative /uL (Negative) Urine RBC 1 /hpf (0 - 4) Urine WBC <1 /hpf (0 - 5) Urine Squamous Epithelial Cells Few /hpf (<5) Urine Bacteria None seen /hpf (None Seen) Urine Glucose Normal mg/dL (Normal) Troponin I High Sensitivity < 3 ng/L (</=34) Prothrombin Time 11.0 sec (9.3-11.8) Prothromb Time International Ratio 1.04 (0.9-1.15) Hemoglobin A1c 5.8 % A1C (<5.7) Total Bilirubin 0.9 mg/dL (0.2-1.0) Aspartate Amino Transf (AST/SGOT) 22 U/L (13-40) Alanine Aminotransferase (ALT/SGPT) 34 U/L (7-40) Alkaline Phosphatase 63 U/L (46-116) Ammonia 31 umol/L (11-32) Creatine Kinase 134 U/L (34-145) B-Type Natriuretic Peptide 11.16 pg/mL (0-100) Total Protein 6.9 g/dL (5.7-8.2) Albumin 4.4 g/dL (3.2-4.8) Vitamin B12 Level 384 pg/mL (211-911) Thyroid Stimulating Hormone (TSH) 2.26 uIU/mL (0.55-4.78) Prolactin 14.84 ng/mL (2.8-29.2) White Blood Count 6.7 10^3/uL (4.4-10.8) Red Blood Count 4.07 10^6/uL (4.0-5.20) Hemoglobin 13.2 g/dL (12.2-16.2) Hematocrit 37.8 % (36.0-46.0) Mean Corpuscular Volume 93.0 fL (80.0-100.0) Mean Corpuscular Hemoglobin 32.6 pg (28.0-32.0) Mean Corpuscular Hemoglobin Concent 35.0 g/dL (32.0-36.0) Red Cell Distribution Width 13.4 % (11.8-14.3) Platelet Count 245 10^3/uL (140-450) Mean Platelet Volume 8.7 fL (6.9-10.8) Neutrophils (%) (Auto) 62.3 % (37.0-80.0) Lymphocytes (%) (Auto) 26.3 % (10.0-50.0) Monocytes (%) (Auto) 5.4 % (0.0-12.0) Eosinophils (%) (Auto) 5.4 % (0.0-7.0) Basophils (%) (Auto) 0.6 % (0.0-2.0) Neutrophils # (Auto) 4.2 10 ^3/uL (1.6-8.6) Lymphocytes # (Auto) 1.8 10 ^3/uL (0.4-5.4) Monocytes # (Auto) 0.4 10 ^3/uL (0-1.3) Eosinophils # (Auto) 0.4 10 ^3/uL (0-0.8) Basophils # (Auto) 0 10 ^3/uL (0-0.2) Nucleated Red Blood Cells 0.0 % Sodium Level 139 mmol/L (136-145) Potassium Level 4.1 mmol/L (3.5-5.1) Chloride Level 106 mmol/L (98-107) Carbon Dioxide Level 28 mmol/L (20-31) Anion Gap 5 (5-15) Blood Urea Nitrogen 14 mg/dL (9-23) Creatinine 0.69 mg/dL (0.550-1.02) Glomerular Filtration Rate Calc 101 mL/min (>90) BUN/Creatinine Ratio 20.3 (10.0-20.0) Serum Glucose 119 mg/dL (74-106) Calcium Level 9.2 mg/dL (8.7-10.4) Triglycerides Level 100 mg/dL (< 150) Cholesterol Level 138 mg/dL (< 200) LDL Cholesterol 77 mg/dL (< 100) HDL Cholesterol 42 mg/dL (40-59) Appearance: Stated age Psychomotor activity: WNL Behavioral: Cooperative Eye contact: Appropriate Speech: WNL Affect: Appropriate, Mood Congruent Mood: Anxious Thought processes: Linear/Goal-directed Thought content: WNL Suicidal ideations: Absent Homicidal ideations: Absent Orientation: Person, Place, Time, Situation Memory intact: Recent Intellect: Average Abstractability: WNL Concentration: Adequate Attention: Adequate Judgement: WNL Insight: Good Vitals Vital Signs Date Time Temp Pulse Resp B/P (MAP) Pulse Ox O2 Delivery O2 Flow Rate FiO2 01/17/24 12:39 97.8 76 18 140/76 (97) 99 97.8 01/17/24 08:00 Nasal Cannula* 2 28 Current medications Current Medications Medications Dose Ordered Sig/Yusef Route Start Time Stop Time Status Last Admin Dose Admin Acetaminophen/ Hydrocodone Bitart 1 tab Q4HP PRN PO 01/15/24 23:30 01/17/24 09:37 1 TAB Ondansetron HCl 4 mg Q4HP PRN IV 01/15/24 23:30 Morphine Sulfate 2 mg Q4HPRN PRN IV 01/15/24 23:30 01/16/24 21:52 2 MG Nitroglycerin 0.4 mg Q5MINP PRN SL 01/15/24 23:30 Morphine Sulfate 2 mg Q30M PRN IV 01/15/24 23:30 Aspirin 81 mg DAILY PO 01/16/24 10:00 01/17/24 09:36 81 MG Atorvastatin Calcium 40 mg HS PO 01/16/24 22:00 Lorazepam 0.5 mg Q8HP PRN PO 01/16/24 09:45 Treatment plan discussed: With staff Medication adjusted: Yes Labs ordered: No Psychotherapy provided: No Type: Voluntary History of Present Illness Reason for Consult : psychiatric evaluation PER H&P: 58-year-old female patient with past medical history of 4 prior stroke episodes and hypothyroidism, generalized anxiety and dyslipidemia presented with the acute onset neurological deficits associated with chest pain and headaches. The patient was referred to the hospital by her primary care doctor after being evaluated earlier in the day at 1:00 p.m. for unexplained bruising on the lower extremities. During that visit the patient began experiencing difficulty speaking and right-sided facial droop. These symptoms progressed to include paralysis of the bilateral upper and lower extremities by the time of hospital presentation. The patient has had similar episodes in the past associated with prior strokes and out of strokes , from which she reportedly recovered fully, regaining her ability to walk and talk at present the patient is unable to speak move her head or move her extremities. Communication is limited to blinking. On examination there is paralysis of the right side of the face and quadriplegia. Patient denies alcohol use, smoking or drug use. Her current medication list is unknown as the family has not provided and the primary care physician was unavailable for additional history at this time. Neurology has been consulted and the patient has been started on aspirin, clopidogrel. An MRI without contrast has been recommended to localized stroke. At this time it has been approximately 10 hours since the onset of symptoms. PSYCHIATRIST HPI: The patient was seen and evaluated at [facility] via telepsychiatry platform. 58 yr old female admitted to rule out stroke. The neurologist requested psychiatric evaluation to rule out psychogenic symptoms. She reported she has felt scared and crying lately. She reported she wakes up around 1 most nights. She reported she has had a few past incidents of stroke symptoms. She stated that some times she feels her face go against her right shoulder. She says this happens more when she is under stress. She noted she feels restless and worries about things "for no reason." She feels scared, fatigued, difficulty sleeping. Her appetite is variable. She denied having SI/HI/AVH. Past Psychiatric History : Diagnosed with anxiety and depression. No past hospitalizations or suicide attempts. Past Medical History: diabetes, hypothyroid, cholesterol, strokes Current Medications: synthroid, cholesterol medication NKDA Substance use: Denied alcohol and other substance use. Social History : Lives in [place] with . Unemployed. Four children. Diagnosis: GENERALIZE ANXIETY DISORDER Formulation: This 58 yr old female appears to suffer from generalized anxiety disorder which may or may not be contributing to her stroke like symptoms. She likely has a neurological condition causing her weakness and speech problems, but she may have some psychogenic symptoms due to her anxiety as well. She may benefit from from starting zoloft to help reduce her anxiety and getting into outpatient mental health care. She does not not meet criteria for involuntary hold. Plan: 1. Safety. The patient is a low risk for self harm and may be managed as an outpatient. 2. Legal-voluntary. 3. Medication: Risks, benefits, adverse effects of the following were discussed. I recommend starting and giving her a thirty day prescription with two refills of: Zoloft 50mg qam 4. Recommend scheduling follow up with outpatient mental health for medication management and therapy. 5. Case discussed with BIPIN Callahan. 6. Please contact psychiatry if further follow up or reevaluation is desired. Assessment/Diagnosis/Plan Reviewed: Consults, Labs, Medications, Previous Orders, Radiology TORITO VILLASENOR MD Jan 17, 2024 13:13
--- NOTE | 2024-01-17 14:22 | DVH ---
BILATERAL LOWER EXTREMITY VENOUS DOPPLER CLINICAL HISTORY: bilateral leg swelling, and pain Technique: Duplex Doppler evaluation of the deep venous systems of both lower extremities from the co mmon femoral veins to the popliteal veins including color Doppler and spectral/pulsed waveform analys is was performed. COMPARISON: US LT UPPER DVT on DOS: 07/04/22 FINDINGS: The right and left common femoral, superficial femoral, popliteal, posterior tibial veins appear goodrich nt with normal augmentation, phasicity, compressibility and color-flow. IMPRESSION: 1. There is no sonographic evidence for DVT in the lower extremities. HS:Y
--- NOTE | 2024-01-17 15:25 | DVHPNRES ---
Progress Note Date Seen: Jan 17, 2024 Resident Creating Document: DACIAMERLIN WHITE RESIDENT Medical Necessity Reason Pt with a Central, PICC or Fol: Yes The following are medically ne: Gaona Catheter Subjective Review of Systems Patient is a 68-year-old female with a past medical history as described below came to the ED with a chief complaint of facial droop towards the right side noticed by her daughter. Patient apparently walked to the car from home and went the came to the ED patient is slowly started becoming weak in her lower extremities followed by upper extremities. Brought to the ED by her daughter who reported that she developed bruises on her legs on Saturday and Saturday evening she was noted to have slurred speech and facial droop and the came to hospital. Patient was not able to move her legs or arms Code stroke was activated and the patient underwent a CTA head with and without IV contrast which revealed no evidence of acute intracranial hemorrhage, mass effect or hydrocephalus, no hemodynamically significant intracranial stenosis, paroxysmal occlusion or aneurysm, no evidence of hemodynamically significant cervical stenosis or dissection was seen. Patient was evaluated by Neurology who assessed the patient with likely acute ischemic stroke versus stroke mimic, NIHSS 4, likely recrudescence of previous stroke symptoms need evaluation for metabolic/infectious etiologies. Past medical history: Patient has a history of 4-5 similar episodes with stroke- like symptoms in the past as reported by daughter and with the most recent episode 7 months ago in June from which she was able to recover completely. Hypothyroidism Past surgical history: None reported Social history: Denies smoking, alcohol, drug use Home medication: aspirin 81 mg, atorvastatin, levothyroxine Review of systems Patient seen and examined at the bedside. At the time of examination vitals stable ,Alert and oriented x4. Patient understands and responds to verbal commands. Denied chest pain, shortness of breath, palpitations. Objective vital signs Vital Sign Date Time Temp Pulse Resp B/P (MAP) Pulse Ox O2 Delivery O2 Flow Rate FiO2 01/17/24 13:45 76 18 140/76 01/17/24 12:39 97.8 99 97.8 01/17/24 08:00 Nasal Cannula* 2 28 Total Intake and Output 01/16/24 01/16/24 01/17/24 15:00 23:00 07:00 Intake Total 400 ml 480 ml Output Total 530 ml 700 ml Balance -130 ml -220 ml medications Current Medications Medications Dose Ordered Sig/Yusef Route Start Time Stop Time Status Last Admin Dose Admin Acetaminophen/ Hydrocodone Bitart 1 tab Q4HP PRN PO 01/15/24 23:30 01/17/24 09:37 1 TAB Ondansetron HCl 4 mg Q4HP PRN IV 01/15/24 23:30 Morphine Sulfate 2 mg Q4HPRN PRN IV 01/15/24 23:30 01/17/24 13:45 2 MG Nitroglycerin 0.4 mg Q5MINP PRN SL 01/15/24 23:30 Morphine Sulfate 2 mg Q30M PRN IV 01/15/24 23:30 Aspirin 81 mg DAILY PO 01/16/24 10:00 01/17/24 09:36 81 MG Atorvastatin Calcium 40 mg HS PO 01/16/24 22:00 Lorazepam 0.5 mg Q8HP PRN PO 01/16/24 09:45 Examination Physical Examination Gen - no pallor, no icterus, no cyanosis, no clubbing, no LAD, no edema . Skin - Patients skin is warm and dry. HEENT - normocephalic, atraumatic, moist mucous membranes. Neck - full ROM, no LAD, no JVD Pulmonary - B/L vesicular breath sounds. no crackles , no wheezing, no stridor. cardiovascular - normal S1,S2 heard. no murmurs heard. peripheral pulses normal radial 2+, pedal 2+. capillary refill normal <2 secs. GI - soft abdomen without tenderness to palpation .no hepatospleenomegaly. Bowel sounds normoactive Neurological Patient is A/O X 4 . Understands and follows verbal commands. Speech is better and almost fully comprehensible. Motor Tone normal Bilateral lower extremity strength 4/5. B/L upper ext. strength 3/5. Deep tendon reflexes , knee, ankle, triceps 2+. Plantar reflex downgoing. Cranial nerves 2- intact to visual soto 3,4,6 - extraocular movements full and conjugate, pupils are reactive. 5 - intact facial sensation 7- weakness on the left side of face with facial droop to the right side 11- can perform shoulder shrug 12- normal tongue protrusion Sensory Normal touch sensation, normal position and vibration. laboratory and microbiology Laboratory Tests 01/17/24 07:13 Test 01/17/24 07:13 Range/Units Serum Glucose 119 H 74-106 mg/dL Problem List/Assessment/Plan Problem List/Assessment/Plan Assessment and plan # Stroke-like episode ?Acute ischemic stroke ?Psychogenic ?Conversion disorder - CTA head with and without IV contrast showed 1. No evidence of acute intracranial hemorrhage, mass effect or hydrocephalus. 2. No evidence of hemodynamically significant intracranial stenosis, proximal occlusion or aneurysm. 3. No evidence of hemodynamically significant cervical stenosis or dissection. - MRI brain without contrast was unremarkable - carotid Doppler showed no hemodynamically significant stenosis in the bilateral carotid system. - neurology consulted recommended patient on telemetry - on aspirin 81 mg and atorvastatin 40 mg daily - Ativan p.r.n. for anxiety - history of similar episodes in the past with full recovery # history of hypothyroidism - continued on home meds 01/16- patient had significant improvement in motor function since yesterday. Physical therapy assessment revealed that the patient was able to walk 20 ft with front wheel walker with a minimal assistance. Patient's facial droop has improved. Patient was assessed by tele psych who recommended starting sertraline 50 mg q.a.m. to help reduce anxiety, recommended outpatient mental health care. Goals of care discussed with the patient and the family for over 39 minutes. Full code Plan discussed with Dr. Huber Plan discussed with: Patient Date of Service: Jan 17, 2024 Billing Provider: NATY AVALOS MD Common Visit Codes: [id number] INP/OBS CARE(HIGH) MERLIN DONAHUE RESIDENT Jan 17, 2024 15:25 NATY AVALOS MD Jan 19, 2024 23:16
--- NOTE | 2024-01-17 20:18 | DVHPN2 ---
Progress Note - Dictate Date Seen: Jan 17, 2024 Medical Necessity Reason Pt with a Central, PICC or Fol: Yes The following are medically ne: Gaona Catheter Subjective Ms. Sierra is a 58 years old right-handed female with a history of diabetes, dyslipidemia, hypothyroidism, multiple strokes, the patient came to the hospital on 01/15/2024 with a chief company of acute stroke syndrome, chest pain and headache. I have seen and examined, talked to her nurse, and her doctors, her daughter in the room with her She was a lot of improvement today, she is holding her phone talking, she walked earlier today Psychiatry input appreciated, I do not think her acute stroke syndrome is caused by neurologic disorder Urinalysis, 01/15/2024: Unremarkable CBC, 01/16/2024: Unremarkable CMP, 01/16/2024: Unremarkable TG/HDL/LDL/HDL, 01/17/2024: 100/138/77/42 Vitamin B12, 01/2024: 384 TSH, 01/16/2024: 2.26 Carotid Doppler, 01/15/2024: 1. No hemodynamically significant stenosis noted in the right carotid system. 2. No hemodynamically significant stenosis noted in the left carotid system CT head, 01/15/2024: 1. No evidence of acute intracranial hemorrhage, mass effect or hydrocephalus. 2. No evidence of hemodynamically significant intracranial stenosis, proximal occlusion or aneurysm. 3. No evidence of hemodynamically significant cervical stenosis or dissection MRI headache, 01/15/2024: Unremarkable noncontrast MRI brain vital signs Vital Sign Date Time Temp Pulse Resp B/P (MAP) Pulse Ox O2 Delivery O2 Flow Rate FiO2 01/17/24 17:20 97.6 66 18 130/69 (89) 98 97.6 01/17/24 08:00 Nasal Cannula* 2 28 Total Intake and Output 01/16/24 01/16/24 01/17/24 15:00 23:00 07:00 Intake Total 400 ml 480 ml Output Total 530 ml 700 ml Balance -130 ml -220 ml medications Current Medications Medications Dose Ordered Sig/Yusef Route Start Time Stop Time Status Last Admin Dose Admin Acetaminophen/ Hydrocodone Bitart 1 tab Q4HP PRN PO 01/15/24 23:30 01/17/24 09:37 1 TAB Ondansetron HCl 4 mg Q4HP PRN IV 01/15/24 23:30 Morphine Sulfate 2 mg Q4HPRN PRN IV 01/15/24 23:30 01/17/24 13:45 2 MG Nitroglycerin 0.4 mg Q5MINP PRN SL 01/15/24 23:30 Morphine Sulfate 2 mg Q30M PRN IV 01/15/24 23:30 Aspirin 81 mg DAILY PO 01/16/24 10:00 01/17/24 09:36 81 MG Atorvastatin Calcium 40 mg HS PO 01/16/24 22:00 Lorazepam 0.5 mg Q8HP PRN PO 01/16/24 09:45 Sertraline HCl 50 mg DAILY PO 01/18/24 10:00 objective General: the patient is well developed and nourished. No acute distress. MENTAL STATUS: Awake and alert. I presumed she is oriented SPEECH, LANGUAGE, HIGHER CORTICAL FUNCTION: No aphasia or dysarthria CRANIAL NERVES: Pupils are equal, round and reactive. EOMs full and conjugate. Mild bila Facial sensation intact in all three divisions bilaterally. Mandibular strength intact. Mouth twisted towards the right side SENSATION: Sensation to touch and pinprick is normal. No sensory level MOTOR: Normal tone in the upper and lower extremity. Normal muscle bulk. No fasciculations. No abnormal movements or posturing. Muscle strength of the major groups in the extremities is was not 4/5, REFLEXES: Deep tendon reflexes are symmetrical. No pathological reflexes. CEREBELLAR/COORDINATION: Finger-nose test is fine bilaterally GAIT/STATION: deferred laboratory and microbiology Laboratory Tests 01/17/24 07:13 Test 01/17/24 07:13 Range/Units Serum Glucose 119 H 74-106 mg/dL Problem List Recurrent speech disturbance, quadriplegia, with unremarkable MRI and CT brain scan. the patient was had good recovery from previous events Stroke, clinically a typical ? Psychogenic issue Anxiety Assessment/Plan Monitoring Supportive treatment Telemetry Zoloft 50 mg daily Aspirin 81 mg daily, Lipitor 40 mg daily (home medication) Ativan also anxiety attack More recommendation per clinical course This medical document was created using an electronic medical record system with [employer] system. Although this document has been carefully reviewed, there may still be some phonetic and typographical errors. These areas are purely typographical due to imperfections of the software programs, and do not reflect any compromise in the patient's medical care Prognosis poor Plan discussed with: Patient, Daughter, Other Total Time (mins): 40 GABE SHAVER MD Jan 17, 2024 20:18
[2024-01-18] VITALS (7 sets, daily range): BP systolic 107–136; BP diastolic 54–66; PULSE 68–83; RESP 16–20; TEMP 97.6–98.1; O2SAT 95–99
[2024-01-18 08:47] LABS: Anion Gap 8 (5-15); Carbon Dioxide 28 mmol/L (20-31); Chloride 104 mmol/L (98-107); Potassium 3.9 mmol/L (3.5-5.1); Sodium 140 mmol/L (136-145)
[2024-01-18 08:48] LABS: Calcium 10.3 mg/dL (8.7-10.4)
[2024-01-18 08:53] LABS: BUN/Creatinine Ratio 16.7 (10.0-20.0); Blood Urea Nitrogen 11 mg/dL (9-23)
[2024-01-18 08:56] LABS: Glucose 122 mg/dL (74-106)
[2024-01-18] MEDS: SERTRALINE HCL 50 MG TAB PO SCH (09:47)
[2024-01-18] MEDS: LORazepam 0.5 MG TAB PO PRN (09:51)
--- NOTE | 2024-01-18 15:37 | DVH ---
EXAM: CT HEAD WITHOUT CONTRAST INDICATION: Change in neurological deficit. Thank You! TECHNIQUE: CT of the head without intravenous contrast. Radiation Dose : 1. Head: CT Dose: CTDI volume is 49.17 mGy. Dose-length product is 690.07 mGy*cm The dose indicators for CT are the volume Computed Tomography (CT) Dose Index (CTDIvol) and the Dose Length Product (DLP), and are measured in units of mGy and mGy-cm, respectively. These indicators are not patient dose, but values generated from the CT scanner acquisition factors. The report includes radiation exposure data for exposures received during this examination. COMPARISON: MRI BRAIN HEAD WO CONTRAST on DOS: 01/16/24, CT STROKE CTH on DOS: 01/15/24 FINDINGS: There is no evidence of acute intracranial hemorrhage, extra-axial collection, mass effect, midline s hift, herniation or hydrocephalus. The ventricles, sulci and cisterns are age appropriate. The lozano-white differentiation is intact. Patchy periventricular and subcortical white matter hypoattenuation is nonspecific but may be related to small vessel ischemic disease. The visualized paranasal sinuses and mastoid air cells are clear. The surrounding soft tissues and osseous structures are unremarkable. IMPRESSION: 1. No acute intracranial abnormality. Radiation optimization: All CT scans at this facility use at least one of these dose optimization socorro hniques: automated exposure control mA and/or kV adjustment per patient size (includes targeted exam s where dose is matched to clinical indication) or iterative reconstruction.
[2024-01-18] MEDS: LACTULOSE 20Gm/30ML SOLN PO ONE (17:45)
[2024-01-18] MEDS: DOCUSATE SOD 100 MG CAP PO SCH (21:16)
--- NOTE | 2024-01-18 23:06 | DVHPNRES ---
Progress Note Date Seen: Jan 18, 2024 Resident Creating Document: JHLilyJLanaMERLIN RESIDENT Medical Necessity Reason Pt with a Central, PICC or Fol: No Subjective Review of Systems Patient is a 68-year-old female with a past medical history as described below came to the ED with a chief complaint of facial droop towards the right side noticed by her daughter. Patient apparently walked to the car from home and went the came to the ED patient is slowly started becoming weak in her lower extremities followed by upper extremities. Brought to the ED by her daughter who reported that she developed bruises on her legs on Saturday and Saturday evening she was noted to have slurred speech and facial droop and the came to hospital. Patient was not able to move her legs or arms Code stroke was activated and the patient underwent a CTA head with and without IV contrast which revealed no evidence of acute intracranial hemorrhage, mass effect or hydrocephalus, no hemodynamically significant intracranial stenosis, paroxysmal occlusion or aneurysm, no evidence of hemodynamically significant cervical stenosis or dissection was seen. Patient was evaluated by Neurology who assessed the patient with likely acute ischemic stroke versus stroke mimic, NIHSS 4, likely recrudescence of previous stroke symptoms need evaluation for metabolic/infectious etiologies. Past medical history: Patient has a history of 4-5 similar episodes with stroke- like symptoms in the past as reported by daughter and with the most recent episode 7 months ago in June from which she was able to recover completely. Hypothyroidism Past surgical history: None reported Social history: Denies smoking, alcohol, drug use Home medication: aspirin 81 mg, atorvastatin, levothyroxine Review of systems Patient seen and examined at the bedside. At the time of examination vitals stable ,Alert and oriented x4. Patient understands and responds to verbal commands. Denied chest pain, shortness of breath, palpitations. Objective vital signs Vital Sign Date Time Temp Pulse Resp B/P (MAP) Pulse Ox O2 Delivery O2 Flow Rate FiO2 01/18/24 21:00 97.6 83 16 136/56 (82) 99 97.6 01/18/24 08:00 Nasal Cannula* 2 28 Total Intake and Output 01/17/24 01/17/24 01/18/24 15:00 23:00 07:00 Intake Total 960 ml 2680 ml 475 ml Output Total 2525 ml Balance 960 ml 155 ml 475 ml medications Current Medications Medications Dose Ordered Sig/Yusef Route Start Time Stop Time Status Last Admin Dose Admin Acetaminophen/ Hydrocodone Bitart 1 tab Q4HP PRN PO 01/15/24 23:30 01/18/24 20:27 1 TAB Ondansetron HCl 4 mg Q4HP PRN IV 01/15/24 23:30 Morphine Sulfate 2 mg Q4HPRN PRN IV 01/15/24 23:30 01/18/24 17:17 2 MG Nitroglycerin 0.4 mg Q5MINP PRN SL 01/15/24 23:30 Morphine Sulfate 2 mg Q30M PRN IV 01/15/24 23:30 Aspirin 81 mg DAILY PO 01/16/24 10:00 01/18/24 09:46 81 MG Atorvastatin Calcium 40 mg HS PO 01/16/24 22:00 01/18/24 21:18 40 MG Lorazepam 0.5 mg Q8HP PRN PO 01/16/24 09:45 01/18/24 09:51 0.5 MG Sertraline HCl 50 mg DAILY PO 01/18/24 10:00 01/18/24 09:47 50 MG Docusate Sodium 100 mg BID PO 01/18/24 22:00 01/18/24 21:16 100 MG Levothyroxine Sodium 50 mcg QAM@0600 PO 01/19/24 06:00 Patient Own Medication 5 DAILY PO 01/19/24 10:00 Examination Physical Examination Gen - no pallor, no icterus, no cyanosis, no clubbing, no LAD, no edema . Skin - Patients skin is warm and dry. HEENT - normocephalic, atraumatic, moist mucous membranes. Neck - full ROM, no LAD, no JVD Pulmonary - B/L vesicular breath sounds. no crackles , no wheezing, no stridor. cardiovascular - normal S1,S2 heard. no murmurs heard. peripheral pulses normal radial 2+, pedal 2+. capillary refill normal <2 secs. GI - soft abdomen without tenderness to palpation .no hepatosplenomegaly. Bowel sounds normoactive Neurological Patient is A/O X 4 . Understands and follows verbal commands. Speech is better and almost fully comprehensible. Motor Tone normal Left upper and lower extremity strength 5/5, right upper and lower extremity strength 4/5 Deep tendon reflexes , knee, ankle, triceps 2+. Plantar reflex downgoing. Cranial nerves 2- intact to visual soto 3,4,6 - extraocular movements full and conjugate, pupils are reactive. 5 - facial sensation better right side as compared to the left 7- weakness on the left side of face with facial droop to the right side 11- can perform shoulder shrug 12- normal tongue protrusion Sensory Normal touch sensation, normal position and vibration. laboratory and microbiology Laboratory Tests 01/18/24 08:11 01/17/24 07:13 Test 01/18/24 08:11 Range/Units Serum Glucose 122 H 74-106 mg/dL Labs and/or images reviewed: Labs reviewed by me, Image(s) reviewed by me Problem List/Assessment/Plan Problem List/Assessment/Plan Assessment and plan # Stroke-like episode ?Acute ischemic stroke ?Psychogenic ?Conversion disorder - CTA head with and without IV contrast showed 1. No evidence of acute intracranial hemorrhage, mass effect or hydrocephalus. 2. No evidence of hemodynamically significant intracranial stenosis, proximal occlusion or aneurysm. 3. No evidence of hemodynamically significant cervical stenosis or dissection. - MRI brain without contrast was unremarkable - carotid Doppler showed no hemodynamically significant stenosis in the bilateral carotid system. - neurology consulted recommended patient on telemetry - on aspirin 81 mg and atorvastatin 40 mg daily - Ativan p.r.n. for anxiety - history of similar episodes in the past with full recovery # history of hypothyroidism - continued on home meds 01/16- patient had significant improvement in motor function since yesterday. Physical therapy assessment revealed that the patient was able to walk 20 ft with front wheel walker with a minimal assistance. Patient's facial droop has improved. Patient was assessed by tele psych who recommended starting sertraline 50 mg q.a.m. to help reduce anxiety, recommended outpatient mental health care. 01/17- patient reported that she is feeling better and is able to move around with minimal support. Physical therapy assessment recommended patient to be sent home on a Rollator. [employer] representative consulted with the medical equipment was authorized but could not be sent home today. Patient reported constipation for which she was started on docusate 100 mg b.i.d. and was given 1 dose of lactulose p.o. Head CT without contrast was recommended which revealed no acute intracranial abnormality. Goals of care discussed with the patient and the family for 20 minutes. Full code Plan discussed with Dr. Golden Plan discussed with: Patient, Spouse, Daughter, Other (Nurse) My Orders My Orders Orders - MERLIN DONAHUE RESIDENT Procedure Category Date Status Time * Economic Development Director CONS 01/18/24 Transmitted Consult Docusate Sodium PHA 01/18/24 In Process Capsule (Colace 22:00 Levothyroxine Tablet PHA 01/19/24 In Process (Synthroid Tablet) 06:00 Patients Own PHA 01/19/24 In Process Medication 10:00 Addendum Addendum Addendum I was physically present for the gurrola portions of the service provided to patient by THE RESIDENT. I have reviewed the documentation, discussed the case with resident and agree with the resident's documentation except as noted. Also the patient's clinical case was discussed with the patient's nurse. This medical document was created using an electronic medical record system with computerized dictation system. Although this document has been carefully reviewed, there might still be some phonetic and typographical errors. These areas are purely typographical due to imperfections of the software programs, and do not reflect any compromise in the patient's medical care. Late signature. Date of Service: Jan 18, 2024 Billing Provider: LUIS GOLDEN MD Common Visit Codes: 64014-[id number] INP/OBS CARE(HIGH) Secondary Visit Codes: 21710-[id number] CARE PLAN 30 MINUTES (20 minutes) MERLIN DONAHUE RESIDENT Jan 18, 2024 23:06 LUIS GOLDEN MD Jan 20, 2024 07:44
[2024-01-19 05:00] VITALS: BP 110/59; PULSE 71; RESP 17; TEMP 97.8; O2SAT 97
[2024-01-19] MEDS: LEVOTHYROXINE SODIUM 50 MCG TAB PO SCH (05:24)
[2024-01-19 07:32] LABS: Basophils # (auto) 0 10 ^3/uL (0-0.2); Basophils % (auto) 0.4 % (0.0-2.0); Eosinophils # (auto) 0.3 10 ^3/uL (0-0.8); Eosinophils % (auto) 5.1 % (0.0-7.0); Hematocrit 42.6 % (36.0-46.0); Hemoglobin 14.8 g/dL (12.2-16.2); Lymphocytes % (auto) 31.8 % (10.0-50.0); Mean Corpuscular Hemoglobin 32.7 pg (28.0-32.0); Mean Corpuscular Hgb Conc. 34.7 g/dL (32.0-36.0); Mean Corpuscular Volume 94.2 fL (80.0-100.0); Monocytes # (auto) 0.4 10 ^3/uL (0-1.3); Monocytes % (auto) 6.1 % (0.0-12.0); Neutrophils # (auto) 3.5 10 ^3/uL (1.6-8.6); Neutrophils % (auto) 56.6 % (37.0-80.0); Nucleated Red Blood Cells % 0.1 %; Platelet Count (auto) 249 10^3/uL (140-450); Red Blood Cells 4.52 10^6/uL (4.0-5.20); Red Cell Distribution Width 13.3 % (11.8-14.3); White Blood Cell 6.2 10^3/uL (4.4-10.8)
[2024-01-19 07:33] LABS: Chloride 104 mmol/L (98-107); Potassium 4.3 mmol/L (3.5-5.1); Sodium 138 mmol/L (136-145)
[2024-01-19 07:34] LABS: Anion Gap 6 (5-15); Calcium 10.2 mg/dL (8.7-10.4); Carbon Dioxide 28 mmol/L (20-31)
[2024-01-19 07:39] LABS: BUN/Creatinine Ratio 18.5 (10.0-20.0); Blood Urea Nitrogen 12 mg/dL (9-23); Glucose 105 mg/dL (74-106)
[2024-01-19 08:00] VITALS: BP 124/58; PULSE 72; RESP 18; TEMP 98.9; O2SAT 99
[2024-01-19] MEDS ORDERED: SERT50TA PO (09:50)
[2024-01-19] MEDS: CYTOMEL 5 MCG PO SCH (10:00)
[2024-01-19 11:10] VITALS: BP 131/65; PULSE 77; RESP 18; TEMP 98.3; O2SAT 95
[2024-01-19] MEDS ORDERED: IBUP-1453 PO (11:25)
[2024-01-19 13:00] VITALS: BP 131/65; PULSE 77; RESP 18; TEMP 98.3; O2SAT 95
--- NOTE | 2024-01-19 16:26 | DVHDSRES ---
Discharge Summary Date of Admission Resident Creating Document: BLANE GRIMALDO RESIDENT Jan 15, 2024 at 23:23 Date of Discharge: Jan 19, 2024 Admitting Diagnosis Facial droop Labs/Diagnostic Data: Laboratory Results Test 01/19/24 06:42 01/17/24 07:13 01/16/24 07:04 01/15/24 20:40 White Blood Count 6.2 10^3/uL (4.4-10.8) Red Blood Count 4.52 10^6/uL (4.0-5.20) Hemoglobin 14.8 g/dL (12.2-16.2) Hematocrit 42.6 % (36.0-46.0) Mean Corpuscular Volume 94.2 fL (80.0-100.0) Mean Corpuscular Hemoglobin 32.7 pg (28.0-32.0) Mean Corpuscular Hemoglobin Concent 34.7 g/dL (32.0-36.0) Red Cell Distribution Width 13.3 % (11.8-14.3) Platelet Count 249 10^3/uL (140-450) Mean Platelet Volume 9.0 fL (6.9-10.8) Neutrophils (%) (Auto) 56.6 % (37.0-80.0) Lymphocytes (%) (Auto) 31.8 % (10.0-50.0) Monocytes (%) (Auto) 6.1 % (0.0-12.0) Eosinophils (%) (Auto) 5.1 % (0.0-7.0) Basophils (%) (Auto) 0.4 % (0.0-2.0) Neutrophils # (Auto) 3.5 10 ^3/uL (1.6-8.6) Lymphocytes # (Auto) 2.0 10 ^3/uL (0.4-5.4) Monocytes # (Auto) 0.4 10 ^3/uL (0-1.3) Eosinophils # (Auto) 0.3 10 ^3/uL (0-0.8) Basophils # (Auto) 0 10 ^3/uL (0-0.2) Nucleated Red Blood Cells 0.1 % Sodium Level 138 mmol/L (136-145) Potassium Level 4.3 mmol/L (3.5-5.1) Chloride Level 104 mmol/L (98-107) Carbon Dioxide Level 28 mmol/L (20-31) Anion Gap 6 (5-15) Blood Urea Nitrogen 12 mg/dL (9-23) Creatinine 0.65 mg/dL (0.550-1.02) Glomerular Filtration Rate Calc 103 mL/min (>90) BUN/Creatinine Ratio 18.5 (10.0-20.0) Serum Glucose 105 mg/dL (74-106) Calcium Level 10.2 mg/dL (8.7-10.4) Triglycerides Level 100 mg/dL (< 150) Cholesterol Level 138 mg/dL (< 200) LDL Cholesterol 77 mg/dL (< 100) HDL Cholesterol 42 mg/dL (40-59) Prothrombin Time 11.0 sec (9.3-11.8) Prothrombin Time INR 1.04 (0.9-1.15) Hemoglobin A1c 5.8 % A1C (<5.7) Total Bilirubin 0.9 mg/dL (0.2-1.0) Aspartate Amino Transferase (AST) 22 U/L (13-40) Alanine Aminotransferase (ALT) 34 U/L (7-40) Alkaline Phosphatase 63 U/L (46-116) Ammonia 31 umol/L (11-32) Creatine Kinase 134 U/L (34-145) B-Type Natriuretic Peptide 11.16 pg/mL (0-100) Total Protein 6.9 g/dL (5.7-8.2) Albumin 4.4 g/dL (3.2-4.8) Vitamin B12 Level 384 pg/mL (211-911) Thyroid Stimulating Hormone (TSH) 2.26 uIU/mL (0.55-4.78) Prolactin 14.84 ng/mL (2.8-29.2) Troponin I High Sensitivity < 3 ng/L (</=34) Test 01/15/24 20:11 Urine Color Colorless (Yellow) Urine Clarity Clear (Clear) Urine pH 6.5 (5.0-9.0) Urine Specific Hyrum 1.019 (1.001-1.035) Urine Protein Negative (Negative) Urine Ketones Negative (Negative) Urine Blood Negative /uL (Negative) Urine Nitrite Negative (Negative) Urine Bilirubin Negative (Negative) Urine Urobilinogen Normal mg/dL (Negative) Urine Leukocyte Esterase Negative /uL (Negative) Urine RBC 1 /hpf (0 - 4) Urine WBC <1 /hpf (0 - 5) Urine Squamous Epithelial Cells Few /hpf (<5) Urine Bacteria None seen /hpf (None Seen) Urine Glucose Normal mg/dL (Normal) Other Laboratory Tests 01/19/24 06:42 Brief Hx & Hospital Course: Patient is a 68-year-old female with a past medical history as described below came to the ED with a chief complaint of facial droop towards the right side noticed by her daughter. Patient apparently walked to the car from home and went the came to the ED patient is slowly started becoming weak in her lower extremities followed by upper extremities. Brought to the ED by her daughter who reported that she developed bruises on her legs on Saturday and Saturday evening she was noted to have slurred speech and facial droop and the came to hospital. Patient was not able to move her legs or arms Code stroke was activated and the patient underwent a CTA head with and without IV contrast which revealed no evidence of acute intracranial hemorrhage, mass effect or hydrocephalus, no hemodynamically significant intracranial stenosis, paroxysmal occlusion or aneurysm, no evidence of hemodynamically significant cervical stenosis or dissection was seen. Past medical history: Patient has a history of 4-5 similar episodes with stroke- like symptoms in the past as reported by daughter and with the most recent episode 7 months ago in June from which she was able to recover completely. Hypothyroidism Past surgical history: None reported Social history: Denies smoking, alcohol, drug use Home medication: aspirin 81 mg, atorvastatin, levothyroxine Patient was evaluated by Neurology who assessed the patient with likely acute ischemic stroke versus stroke mimic, NIHSS 4, likely recrudescence of previous stroke symptoms need evaluation for metabolic/infectious etiologies. Head CT with and without contrast, MRI of the brain, were all unremarkable, ruled out stroke. Carotid Doppler was also unremarkable. Patient was seen by psych psychiatrist which determined the patient has significant anxiety and was started on Zoloft. On subsequent patient's evaluations, her vitals signs were stable ,Alert and oriented x4. Patient understands and responds to verbal commands. Denied chest pain, shortness of breath, palpitations. Physical examination on the day of discharge as below: Gen - no pallor, no icterus, no cyanosis, no clubbing, no LAD, no edema . Skin - Patients skin is warm and dry. HEENT - normocephalic, atraumatic, moist mucous membranes. Neck - full ROM, no LAD, no JVD Pulmonary - B/L vesicular breath sounds. no crackles , no wheezing, no stridor. cardiovascular - normal S1,S2 heard. no murmurs heard. peripheral pulses normal radial 2+, pedal 2+. capillary refill normal <2 secs. GI - soft abdomen without tenderness to palpation .no hepatospleenomegaly. Bowel sounds normoactive Neurological Patient is A/O X 4 . Understands and follows verbal commands. Speech is better and almost fully comprehensible. Motor Tone normal Left upper and lower extremity strength 5/5, right upper and lower extremity strength 4/5 Deep tendon reflexes , knee, ankle, triceps 2+. Plantar reflex downgoing. Cranial nerves 2- intact to visual soto 3,4,6 - extraocular movements full and conjugate, pupils are reactive. 5 - facial sensation better right side as compared to the left 7- weakness on the left side of face with facial droop to the right side 11- can perform shoulder shrug 12- normal tongue protrusion Sensory Normal touch sensation, normal position and vibration. Discharge plan: Continue home medications as prescribed. Follow with PCP within one week. Continue Zoloft 50 mg p.o. q.d. Referral to psychiatrist. Counseled on lifestyle modifications. Patient verbalized understanding and agree with this plan, we spent over 35 minutes explaining the plan. Plan discussed with Dr. 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 Operations or Procedures [place] [address] Ph: [phone] DIAGNOSTIC IMAGING Diagnostic Imaging Report : [id number] Signed PATIENT: ADITYA KRAUS ACCT: [id number] UNIT: [id number] : 1965 LOC: ER ROOM / BED: / AGE / SEX: 58 / F ADM STATUS: REG ER SERVICE 6037 ORDERING PHYSICIAN: IDNORA QUESADA MD PROCEDURE(s): CXRP - CHEST PORTABLE REASON: stroke symptoms ORDER NUMBER(s): [id number], ACCESSION NUMBER(s): [id number] EXAM: XY CHEST PORTABLE TECHNIQUE: Single frontal chest radiograph CLINICAL HISTORY: stroke symptoms COMPARISON: None Findings/Impression: Frontal chest radiograph demonstrates no acute osseous or superficial soft tissue abnormalities. The trachea is midline. The cardiac silhouette and mediastinum are within normal limits. No pneumothorax, pleural effusions, or consolidations. ATED BY: SAKINA MAYS DO DICTATED DATE/TIME: 01/15/242054 SIGNED BY: SAKINA MAYS DO SIGNED DATE/TIME: 01/15/242054 CC: [place] [address] Ph: [phone] DIAGNOSTIC IMAGING Diagnostic Imaging Report : [id number] Signed PATIENT: ADITYA KRAUS ACCT: [id number] UNIT: [id number] : 1965 LOC: ER ROOM / BED: / AGE / SEX: 58 / F ADM STATUS: REG ER SERVICE 57 ORDERING PHYSICIAN: DINORA QUESADA MD PROCEDURE(s): CTH - STROKE CTH REASON: r/o cva ORDER NUMBER(s): [id number], ACCESSION NUMBER(s): [id number] INDICATION: r/o cva COMPARISON: None TECHNIQUE: CTA head without and with intravenous contrast. CTA neck with intravenous contrast. 3D image postprocessing was performed on a dedicated workstation and images were used for interpretation and reporting. Radiation Dose Information: CT Dose: CTDI volume is 33.61 mGy. Dose-length product is 1456.28 mGy*cm FINDINGS: CT head: There is no evidence of acute intracranial hemorrhage, extra-axial collection, mass effect, midline shift, herniation or hydrocephalus. The ventricles, sulci and cisterns are age appropriate. The lozano-white differentiation is intact. The visualized paranasal sinuses and mastoid air cells are clear. The surrounding soft tissues and osseous structures are unremarkable. CTA head: There is normal enhancement of the visualized distal internal carotid, anterior and middle cerebral arteries. There is a normal anterior communicating artery complex. There are bilateral posterior communicating arteries. The vertebral, basilar, cerebellar and posterior cerebral arteries are within normal limits. The early parenchymal enhancement is grossly unremarkable. The visualized intracranial venous structures are grossly unremarkable. CTA neck: The visualized thoracic aortic arch and proximal great vessels are unremarkable. The left common, internal and external carotid arteries are within normal limits. The right common, internal and external carotid arteries are within normal limits. The cervical segments of the right and left vertebral arteries are within normal limits. The limited visualized lung apices are clear. The surrounding soft tissues and osseous structures are otherwise unremarkable. IMPRESSION: 1. No evidence of acute intracranial hemorrhage, mass effect or hydrocephalus. 2. No evidence of hemodynamically significant intracranial stenosis, proximal occlusion or aneurysm. 3. No evidence of hemodynamically significant cervical stenosis or dissection. All CT scans at this medical facility are performed using dose modulation techniques as appropriate to a performed exam including the following: Automated exposure control was utilized; adjustment of the MA and/or KV according to patient size; and use of iterative reconstruction technique. ATED BY: SAFIA LEOS MD DICTATED DATE/TIME: 01/15/242014 SIGNED BY: SAFIA LEOS MD SIGNED DATE/TIME: 01/15/242014 CC: [place] [address] Ph: [phone] DIAGNOSTIC IMAGING Diagnostic Imaging Report : [id number] Signed PATIENT: ADITYA KRAUS ACCT: [id number] UNIT: [id number] : 1965 LOC: [facility] ROOM / BED: [address] [place] [address] AGE / SEX: 58 / F ADM STATUS: ADM IN SERVICE 19 ORDERING PHYSICIAN: ROCIO STEWART RESIDENT PROCEDURE(s): CARCL - CAROTID DUPLX W COLOR DOP REASON: acute stroke ORDER NUMBER(s): [id number], ACCESSION NUMBER(s): [id number] Carotid Duplex Clinical History: acute stroke Comparison: None Technique: Duplex Doppler evaluation of the extracranial carotid and vertebral arteries including color Doppler and spectral/pulsed waveform analysis was performed. Findings: RIGHT SIDE: The peak systolic velocities are 91.9 cm/s in the CCA, 62.2 cm/s in the ICA. The ICA/CCA ratio is 0.9. The external carotid artery is patent with peak systolic velocity of 118.5 cm/s proximally. There is appropriate antegrade flow in the right vertebral artery. LEFT SIDE: The peak systolic velocities are 82.3 cm/s in the CCA, 60.9 cm/s in the ICA. The ICA/CCA ratio is 1.2. The external carotid artery is patent with peak systolic velocity of 92.1 cm/s proximally. There is appropriate antegrade flow in the left vertebral artery. IMPRESSION: 1. No hemodynamically significant stenosis noted in the right carotid system. 2. No hemodynamically significant stenosis noted in the left carotid system. Reference: Radiology 2003; 229:340-346 Normal ICA PSV is <125 cm/sec and no plaque or intimal thickening is visible sonographically additional criteria include ICA/CCA PSV ratio <2.0 and ICA EDV <40 cm/sec <50% ICA stenosis ICA PSV is <125 cm/sec and plaque or intimal thickening is visible sonographically additional criteria include ICA/CCA PSV ratio <2.0 and ICA EDV <40 cm/sec 50-69% ICA stenosis ICA PSV is 125-230 cm/sec and plaque is visible sonographically additional criteria include ICA/CCA PSV ratio of 2.0-4.0 and ICA EDV of 40-100 cm/sec 70% ICA stenosis but less than near occlusion ICA PSV is >230 cm/sec and visible plaque and luminal narrowing are seen at lozano-scale and color Doppler ultrasound (the higher the Doppler parameters lie above the threshold of 230 cm/sec, the greater the likelihood of severe disease) additional criteria include ICA/CCA PSV ratio >4 and ICA EDV >100 cm/sec ATED BY: SAFIA LEOS MD DICTATED DATE/TIME: 01/16/2410 SIGNED BY: SAFIA LEOS MD SIGNED DATE/TIME: 01/16/2410 CC: [address] [id number] Ph: [phone] DIAGNOSTIC IMAGING Diagnostic Imaging Report : [id number] Signed PATIENT: ADITYA KRAUS ACCT: [id number] UNIT: [id number] : 1965 LOC: [facility] ROOM / BED: 0295T / A AGE / SEX: 58 / F ADM STATUS: ADM IN SERVICE 0730 ORDERING PHYSICIAN: DINORA QUESADA MD PROCEDURE(s): MBHL - BRAIN HEAD WO CONTRAST REASON: facial asymmetry ORDER NUMBER(s): [id number], ACCESSION NUMBER(s): [id number] EXAMINATION: MRI BRAIN HEAD WO CONTRAST INDICATION: facial asymmetry COMPARISON: None TECHNIQUE: Multiplanar, multisequence magnetic resonance imaging of the brain was performed without the use of intravenous contrast. FINDINGS: There is no restricted diffusion. The lozano and white matter signal is appropriate. There is no evidence of hemorrhage, mass, mass effect or midline shift. There is no hydrocephalus or extra-axial fluid collection. The visualized intracranial vasculature demonstrates appropriate flow-voids. The sagittal midline structures appear unremarkable. The craniocervical junction is within normal limits. The calvarium demonstrates normal marrow signal. The paranasal sinuses and mastoid air cells are clear. IMPRESSION: 1. Unremarkable noncontrast MRI brain. HS:Y ATED BY: JUAN POSEY MD DICTATED DATE/TIME: 01/16/24856 SIGNED BY: JUAN POSEY MD SIGNED DATE/TIME: 01/16/24856 CC: [place] [address] Ph: [phone] DIAGNOSTIC IMAGING Diagnostic Imaging Report : [id number] Signed PATIENT: ADITYA KRAUS ACCT: [id number] UNIT: [id number] : 1965 LOC: [facility] ROOM / BED: [facility]T / A AGE / SEX: 58 / F ADM STATUS: ADM IN SERVICE 1234 ORDERING PHYSICIAN: BLANE GRIMALDO PROCEDURE(s): BLDVT - BiLat Lower DVT REASON: bilateral leg swelling, and pain ORDER NUMBER(s): [id number], ACCESSION NUMBER(s): [id number] BILATERAL LOWER EXTREMITY VENOUS DOPPLER CLINICAL HISTORY: bilateral leg swelling, and pain Technique: Duplex Doppler evaluation of the deep venous systems of both lower extremities from the common femoral veins to the popliteal veins including color Doppler and spectral/pulsed waveform analysis was performed. COMPARISON: US LT UPPER DVT on DOS: 07/04/22 FINDINGS: The right and left common femoral, superficial femoral, popliteal, posterior tibial veins appear patent with normal augmentation, phasicity, compressibility and color-flow. IMPRESSION: 1. There is no sonographic evidence for DVT in the lower extremities. HS:Y ATED BY: JUAN POSEY MD DICTATED DATE/TIME: 01/17/241420 SIGNED BY: JUAN POSEY MD SIGNED DATE/TIME: 01/17/241420 CC: [place] [address] Ph: [phone] DIAGNOSTIC IMAGING Diagnostic Imaging Report : [id number] Signed PATIENT: ADITYA KRAUS ACCT: [id number] UNIT: [id number] : 1965 LOC: [facility] ROOM / BED: [facility] / A AGE / SEX: 58 / F ADM STATUS: ADM IN SERVICE 40 ORDERING PHYSICIAN: LUIS GOLDEN MD PROCEDURE(s): HWOCT - HEAD WITHOUT CONTRAST REASON: Change in neurological deficit. Thank You! ORDER NUMBER(s): [id number], ACCESSION NUMBER(s): [id number] EXAM: CT HEAD WITHOUT CONTRAST INDICATION: Change in neurological deficit. Thank You! TECHNIQUE: CT of the head without intravenous contrast. Radiation Dose : 1. Head: CT Dose: CTDI volume is 49.17 mGy. Dose-length product is 690.07 mGy*cm The dose indicators for CT are the volume Computed Tomography (CT) Dose Index (CTDIvol) and the Dose Length Product (DLP), and are measured in units of mGy and mGy-cm, respectively. These indicators are not patient dose, but values generated from the CT scanner acquisition factors. The report includes radiation exposure data for exposures received during this examination. COMPARISON: MRI BRAIN HEAD WO CONTRAST on DOS: 01/16/24, CT STROKE CTH on DOS: 01/15/24 FINDINGS: There is no evidence of acute intracranial hemorrhage, extra-axial collection, mass effect, midline shift, herniation or hydrocephalus. The ventricles, sulci and cisterns are age appropriate. The lozano-white differentiation is intact. Patchy periventricular and subcortical white matter hypoattenuation is nonspecific but may be related to small vessel ischemic disease. The visualized paranasal sinuses and mastoid air cells are clear. The surrounding soft tissues and osseous structures are unremarkable. IMPRESSION: 1. No acute intracranial abnormality. Radiation optimization: All CT scans at this facility use at least one of these dose optimization techniques: automated exposure control mA and/or kV adjustment per patient size (includes targeted exams where dose is matched to clinical indication) or iterative reconstruction. ATED BY: SAFIA LEOS MD DICTATED DATE/TIME: 01/18/24 153 SIGNED BY: SAFIA LEOS MD SIGNED DATE/TIME: 01/18/24 153 CC: [place] [address] Ph: [phone] DIAGNOSTIC IMAGING Diagnostic Imaging Report : [id number] Signed PATIENT: ADITYA KRAUS ACCT: [id number] UNIT: [id number] : 1965 LOC: [facility] ROOM / BED: [address] [place] [address] AGE / SEX: 58 / F ADM STATUS: ADM IN SERVICE 19 ORDERING PHYSICIAN: ROCIO STEWART RESIDENT PROCEDURE(s): ECIDC - ECHO 2D MODE CARDIAC DOP REASON: r/o cardioembolic stroke ORDER NUMBER(s): [id number], ACCESSION NUMBER(s): [id number] APPROVED REPORT EXAM: Two-dimensional and M-mode echocardiogram with Doppler and color Doppler. Blood Pressure: 77/39 mmHg INDICATION R/O stroke RISK FACTORS Height: 5'5", Weight: 174 DIMENSIONS LVDd 4.3 (3.8-5.7cm) LA (2D) 3.2 (1.9-4.0cm) Aortic Root 2.8 (2.0- 3.7cm) LVDs 2.9 (2.5-4.0cm) LA (MM) (1.9-4.0cm) Aortic Cusp Exc 1.8 (1.5- 2.0cm) EF (%) 60.0 (55-70%) Rt. Atrium 3.7 (1.9-4.0cm) Asc. Aorta cm IVSd 0.5 (0.7-1.1cm) RV (D) (1.8-2.4cm) Mitral Valve Mitral Mitral Stenosis E wave 0.64m/s MV Mean GR. mmHg A wave 0.66m/s MV Peak GR. mmHg E/A ratio 1.0 2D MVA cm2 DECEL Time 213ms PRESS 1/2 Time ms Aortic Valve Aortic Valve Aortic Stenosis V1 0.95m/s AO Mean GR. 2mmHg V2 1.03m/s AO Peak GR. 4mmHg LVOT Diameter 1.8 (1.8-2.4cm) Doppler KALPESH 2.35cm2 Pulmonic Valve V2 0.75m/s Other Information Quality : Technically Limited Rhythm : Technically limited study due to body habitus. Conclusion Normal left ventricular size and dimension. Normal left ventricular systolic function estimated ejection fraction 55%. There is a grade 1 diastolic dysfunction. Normal right ventricular size and dimension. Normal right ventricular systolic function. Normal biatrial size and dimension. Normal aortic valve structure and function. Normal mitral valve structure and function. Normal tricuspid valve structure and function. The pulmonary valve is grossly normal. No pericardial effusion. 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 Patient was counseled about treatment plan, medications, possible side effects, patientverbalized understanding. All questions were answered to the best of my ability. This discharge took greater then 30 minutes in planning, reviewing documentation, counseling the patient, and discussing with other team members." ASSESSMENT ASSESSMENT Assessment stroke like episode Addendum Addendum Addendum I was physically present for the gurrola portions of the service provided to patient by THE RESIDENT. I have reviewed the documentation, discussed the case with resident and agree with the resident's documentation except as noted. Also the patient's clinical case was discussed with the patient's nurse. This medical document was created using an electronic medical record system with computerized dictation system. Although this document has been carefully reviewed, there might still be some phonetic and typographical errors. These areas are purely typographical due to imperfections of the software programs, and do not reflect any compromise in the patient's medical care. Late signature. Date of Service: Jan 19, 2024 Billing Provider: LUIS GOLDEN MD Common Visit Codes: 96928-EMM/OBS DISCH DAY >30min BLANE GRIMALDO RESIDENT Jan 19, 2024 16:26 LUIS GOLDEN MD Jan 20, 2024 07:46
== END 2024-01-19 17:00 | disposition home health service (06) | DRG 64 ==
LOC: ER 18:51 → TELE 23:23 → TELE-WESTW 01-16 03:35
PROVIDERS: ADMIT Student in an Organized Health Care Education/Training Program; ATTEND Student in an Organized Health Care Education/Training Program
DX: I63.9 Cerebral infarction, unspecified (principal); G82.50 Quadriplegia, unspecified; J96.01 Acute respiratory failure with hypoxia; R29.810 Facial weakness; E11.9 Type 2 diabetes mellitus without complications; E78.5 Hyperlipidemia, unspecified; F41.1 Generalized anxiety disorder; F32.A Depression, unspecified; E03.9 Hypothyroidism, unspecified; E66.9 Obesity, unspecified; F44.9 Dissociative and conversion disorder, unspecified; Z86.73 Personal history of transient ischemic attack (TIA), and cerebral infarction without residual deficits; Z79.82 Long term (current) use of aspirin; Z79.899 Other long term (current) drug therapy; Z68.29 Body mass index [BMI] 29.0-29.9, adult
CPT/HCPCS: 36415; 70450; 70551; 71045; 80048; 80053; 80061; 81001; 82140; 82550; 82607; 83036; 83880; 84146; 84443; 84484; 85025; 85610; 92610; 93005; 93306; 93886; 93970; 97110; 97116; 97163; 97530; 99291; G0378

== ENCOUNTER 2024-06-16 17:03 | Emergency (ER) | payer SELFPAY ==
[~2024-06-16] VITALS: Ht 165.1 cm; Wt 74.3 kg
[~2024-06-16 17:03] MED LIST changes: +ASPI-628 PO; +ATOR-47 PO; +IBUP-1453 PO; +LEVO50TA7 PO; +LIOT5TAB31 PO; -NAPR-746 PO; +SERT50TA PO
[2024-06-16 18:41] LABS: Basophils # (auto) 0 10 ^3/uL (0-0.2); Basophils % (auto) 0.5 % (0.0-2.0); Eosinophils # (auto) 0.1 10 ^3/uL (0-0.8); Eosinophils % (auto) 1.9 % (0.0-7.0); Hematocrit 42.2 % (36.0-46.0); Hemoglobin 14.8 g/dL (12.2-16.2); Lymphocytes # (auto) 2.8 10 ^3/uL (0.4-5.4); Lymphocytes % (auto) 47.2 % (10.0-50.0); Mean Corpuscular Hemoglobin 32.1 pg (28.0-32.0); Mean Corpuscular Hgb Conc. 34.9 g/dL (32.0-36.0); Mean Corpuscular Volume 91.9 fL (80.0-100.0); Monocytes # (auto) 0.4 10 ^3/uL (0-1.3); Monocytes % (auto) 7.2 % (0.0-12.0); Neutrophils # (auto) 2.6 10 ^3/uL (1.6-8.6); Neutrophils % (auto) 43.2 % (37.0-80.0); Nucleated Red Blood Cells % 0.1 %; Platelet Count (auto) 260 10^3/uL (140-450); Red Blood Cells 4.59 10^6/uL (4.0-5.20); Red Cell Distribution Width 14.2 % (11.8-14.3); White Blood Cell 5.9 10^3/uL (4.4-10.8)
[2024-06-16 18:48] LABS: Chloride 104 mmol/L (98-107); Potassium 4.9 mmol/L (3.5-5.1); Sodium 140 mmol/L (136-145)
[2024-06-16 18:49] LABS: Anion Gap 6 (5-15); Carbon Dioxide 30 mmol/L (20-31)
--- NOTE | 2024-06-16 18:51 | DVH ---
INDICATION: cp TECHNIQUE: Frontal view of the chest. COMPARISON: XY CHEST PORTABLE on DOS: 01/15/24 FINDINGS: . The heart and mediastinal contours are grossly unremarkable. There is no evidence of pleural disea se. The lungs are clear. The bony structures of the chest are intact without fracture. IMPRESSION: 1. No evidence of acute disease.
[2024-06-16 18:54] LABS: Glucose 97 mg/dL (74-106)
[2024-06-16 18:55] LABS: BUN/Creatinine Ratio 21.1 (10.0-20.0); Blood Urea Nitrogen 16 mg/dL (9-23)
[2024-06-16 18:57] LABS: Calcium 11.1 mg/dL (8.7-10.4)
--- NOTE | 2024-06-16 20:20 | ECG ---
[facility] Test Date: 2024-06-16 Test Time: 20:18:30 Pat Name: ADITYA KRAUS Department: ED Room: Gender: F [employer] Driver: SMOOTH : 1965 Requested By: JOHN CHARLES Order Number: [id number] Reading MD: Slim Randolph Measurements Intervals [place] Rate: 59 P: 93 CO: 151 QRS: 83 QRSD: 82 T: 70 QT: 382 QTc: 379 Interpretive Statements Sinus rhythm Minimal ST elevation, inferior leads Electronically Signed On 06-18-2024 21:14:44 PDT by Slim Randolph Please click the below link to view image of tracing.
--- NOTE | 2024-06-16 21:14 | ED.PDOC ---
History of Present Illness HPI Comments 59 y/o F, with a history of probable TIA on ASA, HLD, and hypothyroidism, presents with 1x day history of intermittent, left upper chest and shoulder pain radiating to the left upper back since yesterday. She denies recent stressors, strenuous activities, sick contact, travel, injuries, or significant cardiac history. Denies any shortness of breath, palpitations, nausea, vomiting, cough, fever, chills, or further associated symptoms. Reports no modifiers. Chief Complaint: Chest Pain Time Seen by MD: 17:00 Primary Care Provider: LYNNETTE Reviewed Notes: Nurses Notes, Medications, Allergies Allergies: Coded Allergies: NO KNOWN ALLERGIES (Unverified , 07/03/21) Home Meds Active Scripts Ibuprofen (Ibuprofen) 400 Mg Tab, 1 TAB PO Q6HPRN for 5 Days, #20 TAB Prov:BLANE GRIMALDO RESIDENT 01/19/24 Sertraline Hcl (Zoloft) 50 Mg Tab, 50 MG PO DAILY for 30 Days, #30 TAB 1 Refill Prov:BLANE GRIMALDO RESIDENT 01/19/24 Reported Medications Liothyronine Sodium (Liothyronine Sodium) 5 Mcg Tab, 1 TAB PO DAILY 01/16/24 Levothyroxine Sodium (Levothyroxine Sodium) 50 Mcg Tab, 1 TAB PO DAILY 01/16/24 Aspirin (Aspirin Adult Low Dose) 81 Mg Tab, 1 TAB PO DAILY 01/16/24 Atorvastatin Calcium (ATORVASTATIN CALCIUM) 80 Mg Tab, 1 TAB PO DAILY 01/16/24 Information Source: Patient Mode of Arrival: Ambulatory Severity: Moderate Timing: Days Duration: Since onset Prehospital treatment: None Past Medical History PAST MEDICAL HISTORY: DM, High Lipids, Thyroid (hypothryoidism) Past Medical History (Other): TIAs Surgical History: Denies all surgeries INFORMATION WRITER History: Denies all INFORMATION WRITER Hx Family History Family History: Reviewed,noncontributory to illness Social History Smoker: Non-Smoker Alcohol: Denies ETOH Use Drugs: Denies Drug Use Lives In: Home All Other Systems: Reviewed and Negative (Comprehensive systems review obtained and negative except for what is stated in the HPI.) Physical Exam General Appearance: No Apparent Distress HEENT: Other (Pupils and face symmetric. Moist mucous membranes.) Neck: Full Range of Motion, Non-Tender, Normal Inspection, Supple Respiratory: Lungs Clear, No Accessory Muscle Use, No Respiratory Distress, Normal Breath Sounds, Other (Chest pain reproducible with palpation of the left upper anterior chest wall) Cardiovascular: No Edema, No JVD, Regular Rate/Rhythm Breast Exam: Deferred Gastrointestinal: Non Tender, Soft Genitalia: Deferred Pelvic: Deferred Rectal: Deferred Extremities: Normal inspection, Normal range of motion, Non-tender, No pedal edema Neurologic: Alert (Oriented x4), Normal Affect, Normal Mood, Other (Ambulatory.) Cerebellar Function: NOT DONE Reflexes: NOT DONE Skin: Dry, Normal Color, Warm Lymphatic: NOT DONE Was a procedure done? Was a procedure done?: No EKG EKG : Comments Sinus rhythm, rate 59, normal intervals, normal axis, normal QRS, nonspecific T change. Differential Dx Considerations may include: ID, PE, ACS, URI, PNA, anxiety, angina, musculoskeletal pain, viral syndrome, among others X-Ray, Labs, Meds, VS Vital Signs Date Time Temp Pulse Resp B/P (MAP) Pulse Ox O2 Delivery O2 Flow Rate FiO2 06/16/24 22:00 67 20 100 Room Air 06/16/24 22:00 97.9 67 20 123/50 (74) 100 97.9 06/16/24 20:18 59 06/16/24 18:07 66 06/16/24 17:12 71 06/16/24 17:08 98.1 75 18 28/70 (56) 100 98.1 Lab Test 06/16/24 18:11 06/16/24 17:20 Range/Units Troponin I High Sensitivity < 3 L < 3 L </=34 ng/L White Blood Count 5.9 4.4-10.8 10^3/uL Red Blood Count 4.59 4.0-5.20 10^6/uL Hemoglobin 14.8 12.2-16.2 g/dL Hematocrit 42.2 36.0-46.0 % Mean Corpuscular Volume 91.9 80.0-100.0 fL Mean Corpuscular Hemoglobin 32.1 H 28.0-32.0 pg Mean Corpuscular Hemoglobin Concent 34.9 32.0-36.0 g/dL Red Cell Distribution Width 14.2 11.8-14.3 % Platelet Count 260 140-450 10^3/uL Mean Platelet Volume 9.1 6.9-10.8 fL Neutrophils (%) (Auto) 43.2 37.0-80.0 % Lymphocytes (%) (Auto) 47.2 10.0-50.0 % Monocytes (%) (Auto) 7.2 0.0-12.0 % Eosinophils (%) (Auto) 1.9 0.0-7.0 % Basophils (%) (Auto) 0.5 0.0-2.0 % Neutrophils # (Auto) 2.6 1.6-8.6 10 ^3/uL Lymphocytes # (Auto) 2.8 0.4-5.4 10 ^3/uL Monocytes # (Auto) 0.4 0-1.3 10 ^3/uL Eosinophils # (Auto) 0.1 0-0.8 10 ^3/uL Basophils # (Auto) 0 0-0.2 10 ^3/uL Nucleated Red Blood Cells 0.1 % Sodium Level 140 136-145 mmol/L Potassium Level 4.9 3.5-5.1 mmol/L Chloride Level 104 98-107 mmol/L Carbon Dioxide Level 30 20-31 mmol/L Anion Gap 6 5-15 Blood Urea Nitrogen 16 9-23 mg/dL Creatinine 0.76 0.550-1.02 mg/dL Glomerular Filtration Rate Calc 91 >90 mL/min BUN/Creatinine Ratio 21.1 H 10.0-20.0 Serum Glucose 97 74-106 mg/dL Calcium Level 11.1 H 8.7-10.4 mg/dL B-Type Natriuretic Peptide 14.85 0-100 pg/mL [place] [address] Ph: [phone] DIAGNOSTIC IMAGING Diagnostic Imaging Report : [id number] Signed PATIENT: ADITYA KRAUS ACCT: [id number] UNIT: [id number] : 1965 LOC: ER ROOM / BED: / AGE / SEX: 59 / F ADM STATUS: REG ER SERVICE [id number] ORDERING PHYSICIAN: JOHN AVILES MD PROCEDURE(s): CXRP - CHEST PORTABLE REASON: cp ORDER NUMBER(s): [id number], ACCESSION NUMBER(s): [id number] INDICATION: cp TECHNIQUE: Frontal view of the chest. COMPARISON: XY CHEST PORTABLE on DOS: 01/15/24 FINDINGS: . The heart and mediastinal contours are grossly unremarkable. There is no evidence of pleural disease. The lungs are clear. The bony structures of the chest are intact without fracture. IMPRESSION: 1. No evidence of acute disease. ATED BY: ROSALINDA ROCKWELL MD DICTATED DATE/TIME: 06/16/241848 SIGNED BY: ROSALINDA ROCKWELL MD SIGNED DATE/TIME: 06/16/241848 CC: X-Ray, Labs, Meds, VS Comment 59-year-old female with a history of hypertension, dyslipidemia, hypothyroidism and reported TIAs complaining of chest pain since yesterday Vitals unremarkable Exam remarkable for reproducible pain with palpation of the left upper chest wal l Rhythm strip independently interpreted by me: Sinus rhythm, rate 89, no ectopy Chest x-ray unremarkable CBC, basic metabolic panel, BNP and 2 serial troponins unremarkable for any abnormality of acute significance Patient treated with the following in the ED: Toradol 60 mg IM On re-evaluation, patient was resting comfortably with stable vitals. Heart score is 4, pain has improved, and patient appears stable for discharge with close outpatient follow-up with her primary physician for referral to a car diologist for further evaluation of her chest pain. Rx ibuprofen Time of 1ST Reevaluation: 17:30 Reevaluation 1ST: Unchanged Patient Education/Counseling: Diagnosis, Treatment, Need For Follow Up Family Education/Counseling: No Family Present Departure 1 Departure Time of Disposition: 22:14 Impression: Primary Impression: Chest pain with low risk for cardiac etiology Disposition: HOME / SELF CARE / HOMELESS Condition: Stable Additional Instructions: Your blood tests, including screening test for heart attack and heart failure, were unremarkable. Your chest x-ray was normal. Your EKG was unremarkable. I have prescribed medication for your pain. Follow-up with your primary doctor in 1-2 days for referral to a telephone coin box collector for further evaluation of your chest pain. e-Prescriptions Ibuprofen Micronized (Ibuprofen) 600 Mg Tab 600 MG PO Q6HP PRN, #30 TAB Prov: JOHN AVILES MD 06/16/24 Discharged With: Relative Critical Care Note Critical Care Time?: No Stability Stability form required: No Heart Score Heart Score: Heart Score Response (Comments) Value History Moderate Suspicious 1 EKG Repolarization Disturb 1 Age 45-64 1 Risk Factors 1 or 2 risk factors 1 Troponin Normal limit 0 Total 4 I personally scribed for JOHN AVILES MD ([email or web address]) on 06/16/24 at 21:14. Electronically submitted by Abisai Hamilton [email or web address]). JOHN AVILES MD June 16, 2024 21:14
[2024-06-16] MEDS ORDERED: IBUP1TAB5 PO (22:15)
[2024-06-16] MEDS ORDERED: ASPirin 325 MG TAB PO ONE (22:15)
[2024-06-16 22:58] VITALS: BP 128/53; PULSE 62; RESP 19; TEMP 97.8; O2SAT 100
[2024-06-16] MEDS: KETOROLAC TROMETH 60MG/2ML VIAL IM ONE (23:09)
[2024-06-16 23:13] LABS: Urine Bacteria None Seen /hpf (None Seen)
[2024-06-16 23:30] LABS: Urine Blood Negative /uL (Negative); Urine Clarity Clear (Clear); Urine Color Light-Yellow (Yellow); Urine Protein, UAD Negative (Negative); Urine Specific Gravity 1.012 (1.001-1.035); Urine Squamous Epithelial Cell None Seen /hpf (<5); Urine Urobilinogen Normal (Negative); Urine WBC 1 /HPF (0-5)
--- NOTE | 2024-06-18 12:42 | ECG ---
[facility] Test Date: 2024-06-16 Test Time: 17:57:56 Pat Name: ADITYA KRAUS Department: ER Room: Gender: F Rehabilitation Therapy Technician: NEMESIO : 1965 Requested By: JOHN CHARLES Order Number: [id number] Reading MD: Slim Randolph Measurements Intervals [place] Rate: 92 P: 39 OK: 147 QRS: 49 QRSD: 85 T: 17 QT: 364 QTc: 451 Interpretive Statements Sinus rhythm Low voltage, precordial leads Electronically Signed On 06-18-2024 21:15:51 PDT by Slim Randolph Please click the below link to view image of tracing.
--- NOTE | 2024-06-18 12:42 | ECG ---
[facility] Test Date: 2024-06-16 Test Time: 17:12:08 Pat Name: ADITYA KRAUS Department: ER Room: Gender: F Floral Manager: NEMESIO : 1965 Requested By: JOHN CHARLES Order Number: [id number] Reading MD: Slim Randolph Measurements Intervals [place] Rate: 71 P: 65 SD: 142 QRS: 80 QRSD: 82 T: 75 QT: 362 QTc: 394 Interpretive Statements Sinus rhythm ST elevation, consider inferior injury Electronically Signed On 06-18-2024 21:16:23 PDT by Slim Randolph Please click the below link to view image of tracing.
--- NOTE | 2024-06-18 12:42 | ECG ---
[facility] Test Date: 2024-06-16 Test Time: 18:07:15 Pat Name: ADITYA KRAUS Department: ER Room: Gender: F Gas Booster Engineer: XIMENA : 1965 Requested By: JOHN CHARLES Order Number: [id number] Reading MD: Slim Randolph Measurements Intervals [place] Rate: 66 P: 69 CO: 141 QRS: 76 QRSD: 83 T: 67 QT: 388 QTc: 407 Interpretive Statements Sinus rhythm Minimal ST elevation, inferior leads Electronically Signed On 06-18-2024 21:15:30 PDT by Slim Randolph Please click the below link to view image of tracing.
== END 2024-06-16 23:36 | disposition home or self-care (01) ==
LOC: ER 17:05
DX: R07.89 Other chest pain (principal); E11.9 Type 2 diabetes mellitus without complications; E03.9 Hypothyroidism, unspecified; E78.5 Hyperlipidemia, unspecified; Z79.899 Other long term (current) drug therapy; Z79.82 Long term (current) use of aspirin
CPT/HCPCS: 36415; 71045; 80048; 81001; 83880; 84484; 85025; 93005; 96372; 99285; J1885